=== PATIENT | female | born 1955 | race Caucasian/White ===

== ENCOUNTER → 2018-12-08 11:31 | Outpatient (CLI) | payer OTHER, SELFPAY ==
--- NOTE | 2018-12-08 11:37 | RAD_ITS ---
STUDY: X-RAY CHEST REASON FOR EXAM: Female, 63 years old. Cough for 2 months. TECHNIQUE: PA and lateral chest. COMPARISON: January 09, 2015. FINDINGS: The lungs are clear and expanded. There is no demonstrated pleural abnormality. Normal size heart. Normal mediastinum and josé luis. Normal visualized pulmonary arteries. Normal visualized aortic arch and descending thoracic aorta. Normal visualized thoracic spine. Normal visualized ribs, clavicles, and shoulders. There is no demonstrated abnormality of the visualized soft tissue structures of the upper abdomen. RAD/Chest PA and Lateral IMPRESSION: No acute cardiopulmonary disease. Electronically Signed: Shubham Mario MD at 2:44 EST , Service support ,
--- OUTSIDE RECORDS SUMMARY | 2019-02-09 22:43 | XMS RPT_ITS | Continuity of Care Document ---
:1955 Author Organization [facility] Address [address] [facility] [address] [place] [address] Phone Care Team Providers Name Role Phone Jenny James DO Unavailable Dr. Aroldo Wynne Unavailable Christopher Cote Unavailable Arlin Mann Unavailable Unavailable GLYNN Kay Unavailable Unavailable Unavailable Unavailable Problems Name Dates Details Amenorrhea (N91.2, 626.0) Status: Active Annual physical exam (Z00.00, V70.0) Status: Active BMI 40.0-44.9, adult (Z68.41, V85.41) Status: Active BMI 45.0-49.9, adult (Z68.42, V85.42) Status: Active Borderline abnormal thyroid function test (R94.6, 794.5) Status: Active Calcaneal spur (M77.30, 726.73) Status: Active Chest pain (R07.9, 786.50) Comments: MS bc reproducible and anxiety vs ACS(CAD), [facility] Duffy testED 10/02 for chest pain.Testing done .Off and on.middle and left side, non radaiting to neck, jaw or arms.Has SOB with CP.Luke on asse mbly line, thinks stressed out, celexa made her sleepy.[facility] at [facility]: 120[facility]125 [facility]hest pain starts on physical exertion.better with resting. Not have it everyday, if day is mellowed out doesnt ah ve it. 1-2 times /week, not getting worse.No reflux, no sour brash, no abdominal pain.Hold chest when has chest pain, pain is 4-5/10, still able to work , styruggling through. Status: Active Cough (R05, 786.2) Status: Active CRP elevated (R79.82, 790.95) Comments: chronic and we think oamamm up todate, pap and pelvic up to date -- needs scope-- has oa, no current infections Status: Active Diastolic dysfunction (I51.9, 429.9) Comments: Echo 05/09/16: EF 65%, stage 2 diastolic dysfunction. 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 Status: Active Heart murmur (R01.1, 785.2) Comments: new Status: Active Hypercholesterolemia (E78.00, 272.0) Status: Active Hypothyroidism (acquired) (E03.9, 244.9) Comments: follow bc pt stopped meds and doesnt want to take them if borderline Status: Active Localized, primary osteoarthritis of lower leg (M17.10, 715.16) Status: Active Mild pulmonary hypertension (I27.20, 416.8) Comments: RVSP : 32 on echo 05/09/16, EF 65%, stage 2 diastollic duysfunction, started on metoprol last visit, BP okPFT: WNLHas SOB when climbing upstairs, sleeping good, snores at night, no loss of conciosness, has chest pain, no lower extremities edema. Status: Active Noncompliance with medications (Z91.14, V15.81) Status: Active Nonsmoker (Z78.9, V49.89) Status: Active Obesity, unspecified (E66.9, 278.00) Status: Active Post-nasal drainage (R09.82, 473.9) Comments: try nasal spray and antihistamine Status: Active Stress reaction (F43.0, 308.9) Comments: stopped celexa because making her sleepy Status: Active Thrombophlebitis (I80.9, 451.9) Status: Active Thrush (B37.0, 112.0) Status: Active Medications Name Dates Details D3 ADULT, 1000UNIT (Oral Tablet Chewable) Active (1000 UNIT) FISH OIL (Oil) Active 500mg Metoprolol Tartrate 25 MG Oral Tablet 1/2 Tablet bid for 60 days Quantity: 60 {Tablet} Refills: 3 Ordered:13-Nov-2018 Virgilio James DO, DO, Kathleen Start : 13-Nov-2018 Active MULTIVITAMIN (Oral Liquid) for 0 days Refills: 0 Ordered:08-Dec-2018 Gravius, JasminActive Zithromax Z-Tyron 250 MG Oral Tablet tad Tablet qd for 0 days Quantity: 1 {Package} Refills: 0 Ordered:08-Dec-2018 Virgilio James DO, DO, Kathleen Start : 08-Dec-2018 Active Zithromax Z-Tyron 250 MG Oral Tablet tad Tablet qd for 0 days Quantity: 1 {Package} Refills: 0 Ordered:08-Dec-2018 Deborah Kay LPN Start : 08-Dec-2018 Active Cheratussin AC 100-10 MG/5ML Oral Solution 1-2 Teaspoon qhs prn for 0 days Quantity: 6 {Ounce} Refills: 0 Ordered:24-Jan-2017 Deborah Kay LPN Start : 18-Dec-2016 End : 24-Jan-2017 Inactive Clotrimazole 10 MG Mouth/Throat Rafy 1 (one) Rafy 5 x daily for 10 days Quantity: 50 {QS} Refills: 0 Ordered:18-Dec-2016 John THAKKARRaine E Start : 18-Dec-2016 End : 28-Dec-2016 Inactive CRESTOR, 5MG (Oral Tablet) 1 (one) Tablet daily for 90 days Refills: 3 Ordered:22-Dec-2012 Rahul Deborah MAKI Start : 17-Nov-2009 End : 22-Dec-2012 Inactive Naprosyn 500 MG Oral Tablet 1 (one) Tablet bid with food for 10 days then prn for 0 days Quantity: 60 {Tablet} Refills: 3 Ordered:24-Jan-2017 RahulDeborah LPN Start : 04-Aug-2015 End : 24-Jan-2017 Inactive Synthroid 50 MCG Oral Tablet 1 (one) Tablet qd for 0 days Quantity: 30 {Tablet} Refills: 3 Ordered:08-Dec-2018 Deborah Kay LPN Start : 09-Jun-2018 End : 08-Dec-2018 Inactive Dispense as Written CELEXA, 10MG (Oral Tablet) 1 (one) Tablet qhs for 0 days Quantity: 30 {Tablet} Refills: 3 Ordered:23-May-2016 Virgilio James DO, DO, Kathleen Start : 23-May-2016 End : 23-May-2016 Discontinued VISTARIL, 25MG (Oral Capsule) 1 Capsule q 6hrs/prn for 0 days Refills: 0 Ordered:04-May-2009 Chantelle Solis Start : 05-May-2008 End : 04-May-2009 Discontinued Allergies and Adverse Reactions Name Dates Details No Known Allergies (Allergy) Onset: 27-Mar-2017 Status: Active No Known Drug Allergies (Allergy) Status: Active Past Medical History Name Dates Details Abnormal TSH (R79.89, 790.6) Status: Inactive as of 08-Dec-2018 Ankle pain (M25.579, 719.47) Comments: 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 Status: Inactive as of 04-Aug-2015 BMI 40.0-44.9, adult (Z68.41, V85.41) Status: Inactive as of 21-Aug-2017 Breast cancer screening (Renamed from Breast screening) (Z12.39, V76.10) Status: Inactive as of 04-Aug-2015 Chest pain, atypical (R07.89, 786.59) Comments: i think etology mixture of MS and anxiety -- willloook at heart with echo for murmur and at least see if any motion abnormalities Status: Inactive as of 21-Aug-2017 Elevated blood-pressure reading without diagnosis of hypertension (R03.0, 796.2) Status: Resolved as of 29-Dec-2012 Fatigue (R53.83, 780.79) Status: Inactive as of 21-Aug-2017 Hoarseness (R49.0, 784.42) Status: Inactive as of 06-Jun-2018 Influenza vaccination declined (Renamed from Refused influenza vaccine) (Z28.21, V64.06) Status: Inactive as of 08-Dec-2018 Knee pain, bilateral (M25.561, 719.46) Comments: L>R had in left knee and help temitope do in right. doing alot at fair pt needs weight loss Status: Inactive as of 06-Jun-2018 PRURITUS OF SKIN, NOS (698.9) Comments: IMPROVEMENTSUSPECT DERMATIIS -- WELL WILL CHECK SOME ROUTINE LAB Status: Inactive as of 13-Apr-2009 Screening for deficiency anemia (Z13.0, V78.1) Status: Inactive as of 04-Aug-2015 Shoulder pain (M25.519, 719.41) Status: Inactive as of 22-Dec-2012 Therapeutic drug monitoring (Z51.81, V58.83) Status: Inactive as of 06-Jun-2018 Unspecified Diagnosis Status: Inactive as of 04-Aug-2015 Well Women Exam (V72.31)( Pap, Mammo, Routine Female and Dexa) (Renamed from Well Woman V72.31 (p,m,d)) (Z01.419, V72.31) Status: Inactive as of 04-Aug-2015 Procedures Date Value Details 14-Feb-2017 SCREENING MAMM (CAD), BILAT Result: Comments: See Note; NOTES: [facility] Imaging Services [address] [place] [address] Verdana 4d SCREENING MAMM (CAD), BILAT MR#: [id number] Acct: [id number] Name: TEVINDEYSIMorenita Rep #: [id number] : 1955 F 61 From: Ramón Hua MD PCP: Jenny James DO Status: REG CLI Study: SCREENING MAMM (CAD), BILAT Date of Exam: 02/14/17 Exam# [id number] Ordering Dr: Jenny Castrejon DO MAMMOGRAPHY - BILATERAL SCREENING REASON FOR EXAM: Female, 61 years old. Routine annual screening examination. PERTINENT HISTORY: Sister with breast cancer. TECHNIQUE: Digital bi lateral breast leighton (3D mammographic acquisition) in the CC and MLO projections. 2-D mediolateral oblique (MLO) and craniocaudad (CC) views of both breasts were obtained. CAD: Full Field Digital Mammogr aphy with Computer Added Detection was performed. COMPARISON: Comparison is made with prior study dated January 27, 2015 and June 09, 2009. FINDINGS: Breast Compositi on: There are scattered areas of fibroglandular density. There are no dominant masses or suspicious calcifications. Stable secretory calcifications in the upper outer quadrant of the right breast. No other significant abnormalities are identified. There has been no significant change since the prior study. HPBI/SCREENING MAMM (CAD), BILAT IMPR ESSION: Stable bilateral screening mammogram. Yearly follow-up mammogram recommended. (A) ASSESSMENT CATEGORY: BIRADS Category 2: Benign. A letter regarding these r esults will be sent to the patient by the facility within 30 days. Approximately 10% of breast cancers are not detected by mammography. A normal mammogram should not delay biopsy of a clinically suspic ious abnormality. [id number] Electronically Signed: Ramón Hua MD at 8:05 EDT Tel [phone], Service support [phone], CC: Jenny James DO Recreation Instructor: Signed 08-Jun-2016 Pulmonary Function Report Comp Result: Comments: See Note; NOTES: [facility] Pulmonary Services/Neurology [address] [place] [address] Pulmonary Function Test (Comp) MR#: [id number] Acct: [id number] Chau e: ARABELLA CARLSON Rep #: [id number] : 1955 60 From: Christopher Cote MD Referring Dr: Jenny James DO Status: REG CLI Ordering Dr: Jenny James DO Date: 06/07/16 Location: [facility] [place] Sex: F C DATE OF SERVICE: 06/07/2016 BRIEF HISTORY OF PRESENT ILLNESS: The patient is a 60-year-old female, currently under the care of Dr. James, who presents for a complete pulmonary func tion test secondary to a diagnosis of mild pulmonary hypertension. The respiratory therapist reported good patient effort and reproducible results. INTERPRETATION: Forced expiration spirometry demo nstrates no large airways obstructive ventilatory defect. There is no significant response to bronchodilators using strict ATS criteria. Spirograms are of good quality and plateau normally. The respi ratory flow volume loop appears normal. Lung volumes by body plethysmography show all lung volumes within normal limits. Diffusion capacity by single breath carbon monoxide is preserved at 80% of p redicted. Airway resistance is normal. No previous studies are available for comparison. IMPRESSION: These pulmonary function tests are within normal limits. MD David BARRIENTOS C: David James DO T: NTS JOB: [id number] 06/08/16 1649 <Electronically signed by Christopher Cote MD> Date Christopher Cote MD CC: Christopher Cote MD ; Jenny James DO Date Dictated: 06/08/16740 Date Transcribed: 06/08/16740 Recreation Instructor: Signed 09-May-2016 Echocardiogram Complete Result: Comments: See Note; NOTES: [facility] Cardiovascular Services [address] [place] [address] Echo Complete 05/09/16 1401 MR#: [id number] Acct: [id number] Name: ARABELLA RIBEIRO Rep #: [id number] : 1955 60 From: Eriberto Avila MD Attending Dr: Jenny James DO Status: REG CLI Ordering Dr: Jenny James DO Date: 05/09/16 Location: [facility] Sex: F C A dmitted: Reason For Study: murmur Procedure This was a 2D Doppler, Color Flow transthoracic echocardiogram. The study was technically difficult. Due to body habitus. Exam performed in [facility] ent. Left Ventricle Normal size and thickness. The estimated ejection fraction is 65 %. Stage 2 diastolic dysfunction. No regional wall motion abnormalities noted. Right Ventricle Normal size an d thickness. Normal systolic function. Atria The left atrium is moderately enlarged. Normal right atrium. Normal atrial septum. Mitral Valve The mitral valve is structurally normal. No prolapse or stenosis seen. Tricuspid Valve Normal tricuspid valve. Mild (1+) tricuspid valve insufficiency. Right ventricular systolic pressure estimated to be 32 mmHg. Aortic Valve Normal aortic valve. Tri sinus/trileaflet aortic valve. Pulmonic Valve The pulmonic valve is not well visualized. Great Vessels Normal aortic root. Normal arch. Normal inferior vena cava. Inferior vena cava collapse with sniff. Pericardium/Pleural No pericardial effusion. MMode/2D Measurements AND Calculations LVIDd: 4.5 cm IVSd: 1.2 cm LVOT diam: 2.0 cm LVIDs: 2.4 cm LVPWd: 0.85 cm LVOT area: 3.0 cm2 RVDd: 2.8 cm FS: 45.9 % Ao root diam: 3.0 cm LAV(MOD-bp): 75.0 ml LA A4 area: 23.5 cm2 LA dimension: 4.0 cm LAV(MOD-bp) Indexe d: 36.4 ml/m2 LAV(MOD-sp2): 66.3 ml LAV(MOD-sp4): 79.5 ml Doppler Measurements AND Calculations MV E max yogi: 94.3 cm/sec Lat Peak E' Yogi: 11.9 cm/sec Med Peak E' Yogi: 11.6 cm/sec MV A max yogi: 65.2 cm/sec E/E' lat: 7.9 E/E' med: 8.1 MV E/A: 1.4 Ao V2 max: 191.6 cm/sec LV V1 max: 129.7 cm/sec SV(LVOT): 89.8 m l Ao max P.7 mmHg LV V1 max P.7 mmHg Ao V2 mean: 128.6 cm/sec LV V1 mean P.7 mmHg Ao mean P.3 mmHg LV V1 mean: 92.2 cm/sec Ao V2 VTI: 42.5 cm LV V1 VTI: 30.0 cm LENARD(I,D): 2.1 cm2 LENARD(V,D): 2.0 cm2 PA V2 max: 115.0 cm/sec TR max yogi: 257.4 cm/sec TR max P.6 mmHg Interpretation Summary T he estimated ejection fraction is 65 %. Stage 2 diastolic dysfunction. The left atrium is moderately enlarged. Right ventricular systolic pressure estimated to be 32 mmHg. There is no comparison mary dy available. Ordering Physician: Jenny James Performed By: Wendi Chacon RDCS, RVT El ectronically signed by: Eriberto Avila MD on 05/09/2016 03:01 PM 05/09/16 1501 Date Eriberto Avila MD CC: Jenny James DO Date Dictated : 05/09/16 1401 Date Transcribed: 05/09/16 1501 Recreation Instructor: Signed 18-Apr-2016 ELECTROCARDIOGRAM, COMPLETE ([id number]) Comments: nsr no acute chg Result: [MEASUREMENTS ANALYSIS] Date of Test: 04/18/2016 15:07:50; Heart Rate: 71; CT Interval: 170; QRS: 98; QT Interval: 386; Corrected QT Interval (QTc): 405; P Wave Hardy: 52; QRS Wave Hardy: 14; T Wave Hardy: 20; Blood Pressure: 138/70 [ECG DIAGNOSTIC STATEMENTS] Date of Test: 04/18/2016 15:07:50; Summary: Sinus Rhythm WITHIN NORMAL LIMITS 27-Jan-2015 Bilat Scrn Digital AND CAD Result: Comments: See Note; NOTES: [facility] Imaging Services [address] [place] [address] Breast Imaging Report MR#: [id number] Acct: [id number] Name: ARABELLA CARLSON Rep #: [id number] : 1955 F 59 From: Ramón Hua MD PCP: Jenny James DO Status: REG CLI Study: Bilat Scrn Digital AND CAD Date of Exam: 01/27/15 Exam# [id number] Ordering Dr: Olga Lopez MAMMOGRAPHY - BILATERAL SCREENING REASON FOR EXAM: Female, 59 years old. Routine annual screening examination. PERTINENT HISTORY: Sister with breast cancer. TECHNIQUE: Digital examination. Mediolateral oblique (MLO) and craniocaudad (CC) views of both breasts were obtained. CAD: CAD was performed on this study. COMPARISON: Comparison is made with prior examination dated June 09 9. FINDINGS: Breast Composition: There are scattered areas of fibroglandular density. There are no dominant masses or suspicious calcifications. Linear secretor y calcifications are seen in the upper outer quadrant of the right breast. No other significant abnormalities are identified. IMPRESSION: Stable bilateral scre ening mammogram. Yearly follow-up recommended. (A) ASSESSMENT CATEGORY: BIRADS Category 2: Benign. A letter regarding these results will be sent to the patient b y the facility within 30 days. Approximately 10% of breast cancers are not detected by mammography. A normal mammogram should not delay biopsy of a clinically suspicious abnormality. Electronicall y Signed: Ramón Hua MD at 16:02 EDT Tel [phone], Service support [phone], CC: Raine Lopez; Jenny James DO Recreation Instructor: Signed 13-Jan-2015 Emergency Department Summary Result: Comments: See Note; NOTES: [facility] Medical Records Department [address] [place] [address] Emergency Department Summary MR#: [id number] Acct: [id number] Name: ARABELLA ELLSWORTH Rep #: [id number] : 1955 59 From: Miguelito Castaneda DO PCP: Jenny James DO Status: DEP ER DATE OF SERVICE: 01/09/2015 CHIEF COMPLAINT: Chest pain. HISTORY OF CHIEF COMPLAI NT: This 59-year-old female seen at the urgent care today for chest discomfort that she has had over the last 2 days, describes it as retrosternal, worse with movements, especially lifting her right arm over her head or bending over. Initially 2 days ago, had a little bit of chest pressure there, she thought it was maybe indigestion. She denies any shortness of breath, denies any nausea or vomi ting, no radiation of the pain. It does not seem to be exertional. PAST MEDICAL HISTORY: None. PAST SURGICAL HISTORY: Includes carpal tunnel surgery. PRIMARY CARE PHYSICIAN: Jenny Jacob, D.O. ALLERGIES: The patient has no known drug allergies. SOCIAL HISTORY: The patient does not smoke. She drinks alcohol occasionally. PHYSICAL EXAMINATION: VITAL SIGNS: On presentation, blood p ressure 167/76, temperature 98, heart rate 66, respiratory rate is 20, and pulse oximetry 97% on room air. GENERAL: She is awake, alert, in no acute distress. HEENT: She is normocephalic and atrauma tic. Pupils equal, reactive to light. TMs are clear. NECK: Supple. Mucous membranes are moist. CARDIOVASCULAR: Heart is regular. Pulses +2/4, equal bilaterally in the upper and lower extremities. LUNGS: Clear. No rales or wheezes. ____. No crepitus. No subcutaneous emphysema. Exam of the chest does reveal tenderness to palpation over the sternum that reproduces her pain. ABDOMEN: Soft and n ot tender. EXTREMITIES: Intact x4. Muscle strength +5/5. Negative Homans sign. Exam otherwise unremarkable. EMERGENCY DEPARTMENT COURSE: The urgent care note stated that the patient had reproducib le pain, but thought she got to be ruled out for acute FL. The patient did have an EKG on arrival here showed a sinus rhythm with a rate of 69 beats per minute with no acute ST-segment changes. CBC with differential was normal. Chemistries are normal. Troponin was less than 0.02. Chest x-ray showed nothing acute. I did do a D-dimer, which was elevated at 3.99, therefore CT of the chest was obt ained, which was read as negative for PE or dissection. At this point, the patient will be discharged to home. She really has no risk factors for coronary artery disease. I do not feel her chest pain is cardiac in nature. I feel this is all musculoskeletal. The patient will be instructed to take Motrin or Tylenol for discomfort. She does not want anything more for pain. Otherwise, she is instru cted to follow up with Dr. James within next 3-4 days. Return if worsening pain, increasing shortness of breath or her condition worsens in any way. DIAGNOSIS: Chest pain, suspect musculoskeletal chest wall strain. DISPOSITION: Discharged in stable condition. Miguelito Castaneda DO T: NTS JOB: [id number] 01/13/15 0991 <Electronically signed by Miguelito Castaneda DO> Date ___ Miguelito Castaneda DO CC: Jennylulu James DO Date Dictated: 01/09/15 1203 Date Transcribed: 01/09/15 1203 Recreation Instructor: Signed 11-Jan-2015 12 Lead Electrocardiogram Result: Comments: See Note; NOTES: [facility] Cardiovascular Services [address] [place] [address] 12 Lead EKG 01/09/15 1019 MR#: [id number] Acct: [id number] Name: TEVINDEYSI ARABELLA Raine Rep #: [id number] : 1955 59 From: Albert German MD Attending Dr: Status: DEP ER Ordering Dr: Miguelito Castaneda DO Date: 01/09/15 Location: ED Sex: F C Admitted: Test Reason : CP Bloo d Pressure : / mmHG Vent. Rate : 069 BPM Atrial Rate : 069 BPM P-R Int : 156 ms QRS Dur : 092 ms QT Int : 390 ms P-R-T Axes : -07 022 029 degrees QTc Int : 417 ms Normal sinus rhythm Nor mal ECG Confirmed by ERIKA BREWSTER, ALBERT ([id number]), editor magazine FABRICE SANTANA ([id number]) on 01/11/2015 10:31:30 AM Referred By: STELUANN Confirmed By:ALBERT GERMAN MD 01/11/15 1031 Date Albert German MD CC: Jenny James DO Date Dictated: 01/09/15 1019 Date Transcribed: 01/09/15 1019 Recreation Instructor: Signed 09-Jan-2015 Discharge Instruction Result: Comments: See Note; NOTES: [facility] Medical Records Department [address] [place] [address] Discharge Instruction 01/09/15 1200 MR#: [id number] Acct: [id number] Name: ARABELLA CARLSON Rep #: [id number] : 1955 59 From: Miguelito Castaneda DO PCP: Jenny James DO Status: REG ER ED Disposition - Plan for ED Patient: Chief Complaint: Chest Pain Instructi ons: ED Chest Wall Strain Referrals: Jenny James DO [Primary Care Provider] - 3-5 Days if not improving What to do if you have Problems For any increased pain, shortness of breath, bleeding , nausea or vomiting, chest pain, or any unexpected problems, contact your doctor. Call [facility] ( [phone]) or report to the closest Emergency Room. Call 911 if necessary. 01/09/15 120 0 <Electronically signed by Miguelito Castaneda DO> Date Miguelito Castaneda DO Cosigner Signature (If Indicated): Date CC: Jenny James DO 09-Jan-2015 CTA Chest W/WO Contrast Result: Comments: See Note; NOTES: [facility] Imaging Services [address] [place] [address] CAT Scan Report MR#: [id number] Acct: [id number] Name: ARABELLA CARLSON Rep #: [id number] : 1955 F 59 From: Lucien Patel MD PCP: Jenny James DO Status: REG ER Study: CTA Chest W/WO Contrast Date of Exam: 01/09/15 Exam# [id number] Ordering Dr: Miguelito Castaneda DO MARY DY: CTA CHEST REASON FOR EXAM: Female, 59 years old. Midsternal chest pain RADIATION DOSAGE (If Supplied By Facility): CTDIvol = ( 14.61 ) mGy, DLP = ( 677.18 ) mGycm TECHNIQUE: The examination w as performed with the intravenous administration of 100mL ml of Isovue 370 contrast material. Post-processing of the angiographic images was performed, with multiplanar reformation and 3D reconstruct ion. COMPARISON: Chest x-ray. FINDINGS: Normal enhancement of the main pulmonary artery and right and left pulmonary arteries. There is limited enhancement of the bilateral peripheral pulmonary arteries. There is no demonstrated pulmonary embolism. There is atherosclerotic calcification of the aortic arch1. There is no demonstrated aortic dissection. Normal heart and pericardium. Normal mediastinum. There are calcified right hilar lymph nodes. Normal visualized trachea and bronchi. The lungs are well expanded. There are mild fibrotic densitie s in the lungs. Calcified right perihilar nodule. Normal pleura. Normal chest wall structures. There are degenerative changes of thoracic spine and shoulders. Normal visualized upper abdomen. IMPRESSION: No embolism seen. Suboptimal enhancement of the pulmonary arteries. Mild fibrosis or scarring. Electronically Signed: Lucien Patel MD 2 at 11:46 EST , Service support [phone], CC: Jenny James DO; Miguelito Castaneda DO Recreation Instructor: Signed 09-Jan-2015 Chest 1 View (Portable) Result: Comments: See Note; NOTES: [facility] Imaging Services [address] [place] [address] Radiology Report MR#: [id number] Acct: [id number] Name: ARABELLA CARLSON Rep #: [id number] : 1955 F 59 From: Ramón Hua MD PCP: Jenny James DO Status: DEP ER Study: Chest 1 View (Portable) Date of Exam: 01/09/15 Exam# [id number] Ordering Dr: Miguelito Castaneda DO STUDY: X-RAY CHEST REASON FOR EXAM: Female, 59 years old. 2 day history of chest pain. TECHNIQUE: Single AP portable view of the chest. COMPARISON: None. F INDINGS: EKG electrodes are seen. Minimal increased linear markings at the right lung base suggestive of scarring or linear atelectasis. There is no demonstrated pleural abnormality. There is bor derline cardiomegaly. Normal mediastinum and josé luis. Normal visualized pulmonary arteries. There is atherosclerotic tortuosity of the aortic arch and descending thoracic aorta. There are diffuse degen erative changes of the visualized thoracic spine. Normal visualized ribs, clavicles, and shoulders. There is no demonstrated abnormality of the visualized soft tissue structures of the upper abdomen . IMPRESSION: Mild increased linear markings at the right lung base suggestive of a linear atelectasis and/or scarring. Electronically Signed: Ramón song MD at 8:38 EST Tel [phone], Service support [phone], CC: Jenny James DO; Miguelito Castaneda DO Recreation Instructor: Signed 06-Jan-2014 Ankle min 3 Views Result: Comments: See Note; NOTES: [facility] Imaging Services [address] [place] [address] Radiology Report MR#: [id number] Acct: [id number] Name: ARABELLA CARLSON Rep #: [id number] : 1955 F [id number] From: Juan J Mclaughlin MD PCP: Jenny James DO Status: REG CLI Study: Ankle min 3 Views Date of Exam: 01/06/14 Exam# [id number] Ordering Dr: Jenny James DO MARY DY: X-RAY - RIGHT ANKLE REASON FOR EXAM: Female, 58 years old. Medial ankle pain, no known injury TECHNIQUE: 3 views of the ankle. COMPARISON: None. FINDING S: Normal visualized distal tibia and fibula. Normal medial and lateral malleoli. Normal tibiotalar articulation and ankle mortise. There is a spur of the inferior calcaneus. There is joint space narrowing with marginal osteophyte formation and subcortical cyst of the tarsal- metatarsal articulations. IMPRESSION: 1. No destructive or erosive bony process. 2. Osteoarthritis of the midfoot 3. Calcaneal spur. Electronically Signed: Juan J Mclaughlin M.D. at 16:40 EST , Service support [phone], CC: Enid James DO Recreation Instructor: Signed 06-Jan-2014 Knee 4 or More Views Result: Comments: See Note; NOTES: [facility] Imaging Services [address] [id number] Radiology Report MR#: [id number] Acct: [id number] Name: ARABELLA CARLSON Rep #: [id number] : 1955 F 58 From: Juan J Mclaughlin MD PCP: Jenny James DO Status: REG CLI Study: Knee 4 or More Views Date of Exam: 01/06/14 Exam# [id number] Ordering Dr: Jenny James DO STUDY: X-RAY - RIGHT KNEE REASON FOR EXAM: Female, 58 years old. Bilateral knee pain, left more than right TECHNIQUE: 4 views of the knee. COMPARISON: None. FINDINGS: Normal visualized distal femur. Normal visualized proximal tibia and fibula. Normal proximal tibiofibular articulation. There is mild narrowing of the medial compartment with marginal ost eophyte formation. Normal lateral femorotibial compartment. There is mild degenerative arthrosis of the patellofemoral articulation. There is no demonstrated joint effusion. The soft tissue structu res are unremarkable. 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 Electronically Signed: Juan J Mclaughlin M.D. a t 16:41 EST , Service support [phone], CC: Jenny James DO Recreation Instructor: Signed 06-Jan-2014 Knee 4 or More Views Result: Comments: See Note; NOTES: [facility] Imaging Services [address] [place] [address] Radiology Report MR#: [id number] Acct: [id number] Name: ARABELLA CARLSON Rep #: : 1955 F [id number] From: Juan J Mclaughlin MD PCP: Jenny Jmaes DO Status: REG CLI Study: Knee 4 or More Views Date of Exam: 01/06/14 Exam# [id number] Ordering Dr: Jenny James DO STUDY: X-RAY - LEFT KNEE REASON FOR EXAM: Female, 58 years old. Bilateral knee pain, left worse than right TECHNIQUE: 4 views of the knee. COMPARISON: Right knee x-rays performed at the same time . FINDINGS: Normal visualized distal femur. Normal visualized proximal tibia and fibula. Normal proximal tibiofibular articulation. There is mild narrowing of the medial compartment with marginal osteophyte formation. There is lateral subluxation of the tibial plateau in relation to the femoral condyles. Normal lateral femorotibial compartment. There is mo derate to severe narrowing of the lateral patellofemoral facet with lateral patellar tilt. There is no demonstrated joint effusion. The soft tissue structures are unremarkable. IMPRESSION: 1. Degenerative arthrosis of the patellofemoral more than medial compartments. 2. Mild lateral subluxation of the tibial plateau in relation to the femoral condyles, lik micah degenerative. Electronically Signed: Juan J Mclaughlin M.D. at 16:43 EST , Service support [phone], CC: Jenny James DO Recreation Instructor: Signed Family History Unknown Family Member Name Dates Details Father Comments: Lung CA - smoker Status: Active Sister 1 Comments: Lung CA Status: Active Social History Name Dates Details Alcohol Use Comments: Occasional alcohol use Status: Active Caffeine Use Comments: 1 QD Status: Active No Drug Use Status: Active Non Smoker/No Tobacco Use Status: Active Tobacco Use: Never smoker. Status: Active Smoking Status Name Dates Details Never smoker Vital Signs Date Test Result Details :57 Temperature 97.3 f Comments: Method: Temporal Pulse 70 /min Comments: Pattern: Regular Respiration Rate 18 /min Comments: Pattern: Unlabored O2 SAT 97 % Comments: Room air BP Systolic 124 mm[Hg] Comments: Patient Position: Sitting; Cuff Location: Left Arm; Cuff Size: Large BP Diastolic 98 mm[Hg] Comments: Patient Position: Sitting; Cuff Location: Left Arm; Cuff Size: Large Weight 260.125 lb Height 61 in Body Mass Index Calculated 49.15 kg/m2 Body Surface Area Calculated 2.11 m2 :55 Pulse 65 /min Comments: Pattern: Regular Respiration Rate 18 /min Comments: Pattern: Unlabored O2 SAT 97 % Comments: Room air BP Systolic 142 mm[Hg] Comments: Patient Position: Sitting; Cuff Location: Left Arm; Cuff Size: Large BP Diastolic 88 mm[Hg] Comments: Patient Position: Sitting; Cuff Location: Left Arm; Cuff Size: Large Weight 242.125 lb Height 61 in Body Mass Index Calculated 45.75 kg/m2 Body Surface Area Calculated 2.05 m2 :11 Temperature 97.5 f Pulse 77 /min Comments: Pattern: Regular Respiration Rate 18 /min Comments: Pattern: Unlabored O2 SAT 97 % Comments: Room air BP Systolic 148 mm[Hg] Comments: Patient Position: Sitting; Cuff Location: Left Arm; Cuff Size: Standard BP Diastolic 78 mm[Hg] Comments: Patient Position: Sitting; Cuff Location: Left Arm; Cuff Size: Standard Weight 233.5 lb Height 61 in Body Mass Index Calculated 44.12 kg/m2 Body Surface Area Calculated 2.02 m2 :30 Pulse 74 /min Comments: Pattern: Regular Respiration Rate 18 /min Comments: Pattern: Unlabored O2 SAT 96 % Comments: Room air BP Systolic 128 mm[Hg] Comments: Patient Position: Sitting; Cuff Location: Left Arm; Cuff Size: Large BP Diastolic 70 mm[Hg] Comments: Patient Position: Sitting; Cuff Location: Left Arm; Cuff Size: Large Weight 238.375 lb Height 61 in Body Mass Index Calculated 45.04 kg/m2 Body Surface Area Calculated 2.04 m2 :20 Pulse 64 /min Comments: Pattern: Regular Respiration Rate 16 /min Comments: Pattern: Unlabored O2 SAT 97 % Comments: Room air BP Systolic 130 mm[Hg] Comments: Patient Position: Sitting; Cuff Location: Left Arm; Cuff Size: Standard BP Diastolic 70 mm[Hg] Comments: Patient Position: Sitting; Cuff Location: Left Arm; Cuff Size: Standard Weight 232 lb Height 61 in Body Mass Index Calculated 43.84 kg/m2 Body Surface Area Calculated 2.01 m2 :44 Pulse 77 /min Comments: Pattern: Regular Respiration Rate 18 /min Comments: Pattern: Unlabored O2 SAT 94 % Comments: Room air BP Systolic 132 mm[Hg] Comments: Patient Position: Sitting; Cuff Location: Right Arm; Cuff Size: Large BP Diastolic 84 mm[Hg] Comments: Patient Position: Sitting; Cuff Location: Right Arm; Cuff Size: Large Weight 232 lb Height 61 in Body Mass Index Calculated 43.84 kg/m2 Body Surface Area Calculated 2.01 m2 :28 Temperature 98.4 f Comments: Method: Tympanic Pulse 71 /min Comments: Pattern: Regular Respiration Rate 18 /min Comments: Pattern: Unlabored O2 SAT 96 % Comments: Room air BP Systolic 116 mm[Hg] Comments: Patient Position: Sitting; Cuff Location: Left Arm; Cuff Size: Standard BP Diastolic 62 mm[Hg] Comments: Patient Position: Sitting; Cuff Location: Left Arm; Cuff Size: Standard Weight 232.25 lb Height 61 in Body Mass Index Calculated 43.88 kg/m2 Body Surface Area Calculated 2.01 m2 :42 Pulse 76 /min Comments: Pattern: Regular Respiration Rate 18 /min Comments: Pattern: Unlabored O2 SAT 94 % Comments: Room air BP Systolic 118 mm[Hg] Comments: Patient Position: Sitting; Cuff Location: Left Arm; Cuff Size: Large BP Diastolic 78 mm[Hg] Comments: Patient Position: Sitting; Cuff Location: Left Arm; Cuff Size: Large Weight 232.25 lb Height 61 in Body Mass Index Calculated 43.88 kg/m2 Body Surface Area Calculated 2.01 m2 :29 Temperature 98.6 f Comments: Method: Temporal Pulse 62 /min Comments: Pattern: Regular Respiration Rate 16 /min Comments: Pattern: Unlabored O2 SAT 97 % Comments: Room air BP Systolic 138 mm[Hg] Comments: Patient Position: Sitting; Cuff Location: Left Arm; Cuff Size: Standard BP Diastolic 80 mm[Hg] Comments: Patient Position: Sitting; Cuff Location: Left Arm; Cuff Size: Standard Weight 234 lb Height 61 in Body Mass Index Calculated 44.21 kg/m2 Body Surface Area Calculated 2.02 m2 :45 Pulse 74 /min Comments: Pattern: Regular Respiration Rate 20 /min Comments: Pattern: Unlabored O2 SAT 94 % Comments: Room air BP Systolic 122 mm[Hg] Comments: Patient Position: Sitting; Cuff Location: Left Arm; Cuff Size: Standard BP Diastolic 68 mm[Hg] Comments: Patient Position: Sitting; Cuff Location: Left Arm; Cuff Size: Standard Weight 238.25 lb Height 61 in Body Mass Index Calculated 45.02 kg/m2 Body Surface Area Calculated 2.04 m2 :49 Temperature 96.7 f Pulse 80 /min Comments: Pattern: Regular Respiration Rate 16 /min Comments: Pattern: Unlabored O2 SAT 96 % Comments: Room air BP Systolic 138 mm[Hg] Comments: Patient Position: Sitting; Cuff Location: Left Arm; Cuff Size: Standard BP Diastolic 70 mm[Hg] Comments: Patient Position: Sitting; Cuff Location: Left Arm; Cuff Size: Standard Weight 239 lb Height 61 in Body Mass Index Calculated 45.16 kg/m2 Body Surface Area Calculated 2.04 m2 :41 Temperature 97.8 f Comments: Method: Temporal Pulse 80 /min Comments: Pattern: Regular Respiration Rate 18 /min Comments: Pattern: Unlabored O2 SAT 98 % Comments: Room air BP Systolic 138 mm[Hg] Comments: Patient Position: Sitting; Cuff Location: Left Arm; Cuff Size: Large BP Diastolic 74 mm[Hg] Comments: Patient Position: Sitting; Cuff Location: Left Arm; Cuff Size: Large Weight 234 lb Height 61 in Body Mass Index Calculated 44.21 kg/m2 Body Surface Area Calculated 2.02 m2 :52 Temperature 98.3 f Comments: Method: Temporal Pulse 87 /min Comments: Pattern: Regular Respiration Rate 16 /min Comments: Pattern: Unlabored O2 SAT 97 % Comments: Room air BP Systolic 144 mm[Hg] Comments: Patient Position: Sitting; Cuff Location: Left Arm; Cuff Size: Standard BP Diastolic 72 mm[Hg] Comments: Patient Position: Sitting; Cuff Location: Left Arm; Cuff Size: Standard Weight 234.125 lb Height 61 in Body Mass Index Calculated 44.24 kg/m2 Body Surface Area Calculated 2.02 m2 :19 Pulse 60 /min Comments: Pattern: Regular Respiration Rate 18 /min Comments: Pattern: Unlabored O2 SAT 97 % Comments: Room air BP Systolic 158 mm[Hg] Comments: Patient Position: Sitting; Cuff Location: Left Arm; Cuff Size: Standard BP Diastolic 82 mm[Hg] Comments: Patient Position: Sitting; Cuff Location: Left Arm; Cuff Size: Standard Weight 238.125 lb Height 61 in Body Mass Index Calculated 44.99 kg/m2 Body Surface Area Calculated 2.03 m2 :00 Pulse 74 /min Comments: Pattern: Regular Respiration Rate 18 /min Comments: Pattern: Unlabored O2 SAT 97 % Comments: Room air BP Systolic 156 mm[Hg] Comments: Patient Position: Sitting; Cuff Location: Left Arm; Cuff Size: Large BP Diastolic 82 mm[Hg] Comments: Patient Position: Sitting; Cuff Location: Left Arm; Cuff Size: Large Weight 238.125 lb Height 61 in Body Mass Index Calculated 44.99 kg/m2 Body Surface Area Calculated 2.03 m2 :44 Temperature 97.9 f Comments: Method: Oral Pulse 76 /min Comments: Pattern: Regular Respiration Rate 17 /min O2 SAT 98 % Comments: Room air BP Systolic 132 mm[Hg] Comments: Patient Position: Sitting; Cuff Location: Left Arm; Cuff Size: Standard BP Diastolic 80 mm[Hg] Comments: Patient Position: Sitting; Cuff Location: Left Arm; Cuff Size: Standard Weight 225.125 lb :34 Pulse 86 /min Comments: Pattern: Regular Respiration Rate 20 /min Comments: Pattern: Unlabored O2 SAT 97 % Comments: Room air BP Systolic 124 mm[Hg] Comments: Patient Position: Sitting; Cuff Location: Left Arm; Cuff Size: Large BP Diastolic 80 mm[Hg] Comments: Patient Position: Sitting; Cuff Location: Left Arm; Cuff Size: Large Weight 220.5 lb Height 61 in Body Mass Index Calculated 41.66 kg/m2 Body Surface Area Calculated 1.97 m2 :55 Pulse 72 /min Comments: Pattern: Regular Respiration Rate 18 /min Comments: Pattern: Unlabored O2 SAT 97 % Comments: Room air BP Systolic 124 mm[Hg] Comments: Patient Position: Sitting; Cuff Location: Left Arm; Cuff Size: Standard BP Diastolic 78 mm[Hg] Comments: Patient Position: Sitting; Cuff Location: Left Arm; Cuff Size: Standard Weight 219.5 lb Height 61 in Body Mass Index Calculated 41.47 kg/m2 Body Surface Area Calculated 1.97 m2 :19 Temperature 98.4 f Comments: Method: Oral Pulse 78 /min Comments: Pattern: Regular Respiration Rate 20 /min Comments: Pattern: Unlabored O2 SAT 97 % Comments: Room air BP Systolic 138 mm[Hg] Comments: Patient Position: Sitting; Cuff Location: Left Arm; Cuff Size: Large BP Diastolic 80 mm[Hg] Comments: Patient Position: Sitting; Cuff Location: Left Arm; Cuff Size: Large Weight 227.125 lb Height 61 in Body Mass Index Calculated 42.91 kg/m2 Body Surface Area Calculated 1.99 m2 :35 Pulse 79 /min Comments: Pattern: Regular Respiration Rate 20 /min Comments: Pattern: Unlabored O2 SAT 96 % Comments: Room air BP Systolic 140 mm[Hg] Comments: Patient Position: Sitting; Cuff Location: Left Arm; Cuff Size: Large BP Diastolic 82 mm[Hg] Comments: Patient Position: Sitting; Cuff Location: Left Arm; Cuff Size: Large Weight 227.125 lb Height 61 in Body Mass Index Calculated 42.91 kg/m2 Body Surface Area Calculated 1.99 m2 :08 Temperature 98 f Comments: Method: Oral Pulse 84 /min Comments: Pattern: Regular Respiration Rate 20 /min Comments: Pattern: Unlabored BP Systolic 130 mm[Hg] Comments: Patient Position: Sitting; Cuff Location: Left Arm; Cuff Size: Large BP Diastolic 82 mm[Hg] Comments: Patient Position: Sitting; Cuff Location: Left Arm; Cuff Size: Large Weight 229.5 lb Height 61 in Body Mass Index Calculated 43.36 kg/m2 Body Surface Area Calculated 2 m2 :52 Temperature 97.5 f Comments: Method: Oral Pulse 80 /min Comments: Pattern: Regular Respiration Rate 20 /min Comments: Pattern: Unlabored BP Systolic 124 mm[Hg] Comments: Patient Position: Sitting; Cuff Location: Left Arm; Cuff Size: Large BP Diastolic 82 mm[Hg] Comments: Patient Position: Sitting; Cuff Location: Left Arm; Cuff Size: Large Weight 235.125 lb Height 61 in Body Mass Index Calculated 44.43 kg/m2 Body Surface Area Calculated 2.02 m2 :54 Pulse 64 /min Comments: Pattern: Regular Respiration Rate 20 /min Comments: Pattern: Unlabored BP Systolic 128 mm[Hg] Comments: Patient Position: Sitting; Cuff Location: Right Arm; Cuff Size: Standard BP Diastolic 82 mm[Hg] Comments: Patient Position: Sitting; Cuff Location: Right Arm; Cuff Size: Standard Weight 235.125 lb Height 61 in Body Mass Index Calculated 44.43 kg/m2 Body Surface Area Calculated 2.02 m2 :18 Temperature 97 f Comments: Method: Oral Pulse 70 /min Comments: Pattern: Regular Respiration Rate 16 /min Comments: Pattern: Unlabored BP Systolic 120 mm[Hg] Comments: Patient Position: Sitting; Cuff Location: Left Arm; Cuff Size: Standard BP Diastolic 72 mm[Hg] Comments: Patient Position: Sitting; Cuff Location: Left Arm; Cuff Size: Standard Weight 231.5 lb Height 61 in Body Mass Index Calculated 43.74 kg/m2 Body Surface Area Calculated 2.01 m2 :11 Pulse 60 /min Comments: Pattern: Regular Respiration Rate 16 /min Comments: Pattern: Unlabored BP Systolic 138 mm[Hg] Comments: Patient Position: Supine; Cuff Location: Left Arm; Cuff Size: Standard BP Diastolic 80 mm[Hg] Comments: Patient Position: Supine; Cuff Location: Left Arm; Cuff Size: Standard Weight 230.4375 lb Height 62 in Body Mass Index Calculated 42.15 kg/m2 Body Surface Area Calculated 2.03 m2 Head Circumference 0.00 cm :37 Temperature 97.7 f Comments: Method: Oral Pulse 68 /min Comments: Pattern: Regular Respiration Rate 18 /min Comments: Pattern: Unlabored BP Systolic 124 mm[Hg] Comments: Patient Position: Sitting; Cuff Location: Left Arm; Cuff Size: Large BP Diastolic 82 mm[Hg] Comments: Patient Position: Sitting; Cuff Location: Left Arm; Cuff Size: Large Weight 237.0625 lb Height 0 in Head Circumference 0.00 cm :45 Temperature 97.8 f Comments: Method: Oral Pulse 58 /min Comments: Pattern: Regular Respiration Rate 16 /min Comments: Pattern: Unlabored BP Systolic 120 mm[Hg] Comments: Patient Position: Sitting; Cuff Location: Left Arm; Cuff Size: Large BP Diastolic 76 mm[Hg] Comments: Patient Position: Sitting; Cuff Location: Left Arm; Cuff Size: Large Weight 236.4375 lb Height 0 in Head Circumference 0.00 cm :19 Pulse 80 /min Comments: Pattern: Regular Respiration Rate 20 /min Comments: Pattern: Unlabored BP Systolic 136 mm[Hg] Comments: Patient Position: Sitting; Cuff Location: Left Arm; Cuff Size: Large BP Diastolic 70 mm[Hg] Comments: Patient Position: Sitting; Cuff Location: Left Arm; Cuff Size: Large Weight 208.375 lb Height 0 in Head Circumference 0.00 cm :58 Temperature 97.6 f Comments: Method: Oral Pulse 76 /min Comments: Pattern: Regular Respiration Rate 16 /min Comments: Pattern: Undefined BP Systolic 132 mm[Hg] Comments: Patient Position: Sitting; Cuff Location: Left Arm; Cuff Size: Large BP Diastolic 70 mm[Hg] Comments: Patient Position: Sitting; Cuff Location: Left Arm; Cuff Size: Large Weight 208.375 lb Height 0 in Head Circumference 0.00 cm Results Date Description Value Details :42 TSH (85637) Comments: PATIENT NOT FASTINGPERFORMED BY: [employer] [id number] [facility] [id number] TSH 3.160 {uIU/mL} (Normal) Range: 0.450-4.500 :42 T4, FREE (THYROXINE) (64429) Comments: PATIENT NOT FASTINGPERFORMED BY: [facility] HospitalEqoxov8577 [facility] [id number] T4,Free(Direct) 0.91 ng/dL (Normal) Range: 0.82-1.77 :42 T3, FREE (TRIDOTHYRONINE) (24264) Comments: PATIENT NOT FASTINGPERFORMED BY: [facility] HospitalXpnrwe1019 [facility] [id number] Triiodothyronine (T3), Free 2.6 pg/mL (Normal) Range: 2.0-4.4 :18 METABOLIC PANEL, COMPREHENSIVE Comments: PATIENT WAS FASTINGPERFORMED BY: KAT[employer]70 [facility] [id number] (20432) ALT (SGPT) 16 [iU]/L (Normal) Range: 0-32 AST (SGOT) 12 [iU]/L (Normal) Range: 0-40 Alkaline Phosphatase, S 91 [iU]/L (Normal) Range: 39-117 Bilirubin, Total 0.4 mg/dL (Normal) Range: 0.0-1.2 A/G Ratio 1.3 (Normal) Range: 1.2-2.2 Globulin, Total 3.1 g/dL (Normal) Range: 1.5-4.5 Albumin, Serum 4.1 g/dL (Normal) Range: 3.6-4.8 Protein, Total, Serum 7.2 g/dL (Normal) Range: 6.0-8.5 Calcium, Serum 9.4 mg/dL (Normal) Range: 8.7-10.3 Carbon Dioxide, Total 25 mmol/L (Normal) Range: 18-29 Chloride, Serum 104 mmol/L (Normal) Range: 96-106 Potassium, Serum 5.3 mmol/L (Abnormal) Range: 3.5-5.2 Sodium, Serum 144 mmol/L (Normal) Range: 134-144 BUN/Creatinine Ratio 23 (Normal) Range: 12-28 eGFR If Africn Am 102 mL/min/1.73 (Normal) eGFR If NonAfricn Am 89 mL/min/1.73 (Normal) Creatinine, Serum 0.73 mg/dL (Normal) Range: 0.57-1.00 BUN 17 mg/dL (Normal) Range: 8-27 Glucose, Serum 87 mg/dL (Normal) Range: 65-99 :18 LIPID PANEL (74424) Comments: PATIENT WAS FASTINGPERFORMED BY: [employer]6370 [facility] [id number] LDL/HDL Ratio 3.5 {ratio_units} (Abnormal) Range: 0.0-3.2 Comments: LDL/HDL Ratio Men Women 1/2 Avg.Risk 1.0 1.5 Av g.Risk 3.6 3.2 2X Avg.Risk 6.2 5.0 3X Avg.Risk 8.0 6.1 LDL Cholesterol Calc 131 mg/dL (Abnormal) Range: 0-99 VLDL Cholesterol Carlos 27 mg/dL (Normal) Range: 5-40 HDL Cholesterol 37 mg/dL (Abnormal) Triglycerides 134 mg/dL (Normal) Range: 0-149 Cholesterol, Total 195 mg/dL (Normal) Range: 100-199 93-Shm-95615:18 CBC W/AUTO DIFF WBC (94735) Comments: PATIENT WAS FASTINGPERFORMED BY: [facility]Co[facility] HospitalSvudfy7312 [facility] [id number] Immature Grans (Abs) 0.0 {x10E3/uL} (Normal) Range: 0.0-0.1 Immature Granulocytes 0 % (Normal) Baso (Absolute) 0.1 {x10E3/uL} (Normal) Range: 0.0-0.2 Eos (Absolute) 0.3 {x10E3/uL} (Normal) Range: 0.0-0.4 Monocytes(Absolute) 0.3 {x10E3/uL} (Normal) Range: 0.1-0.9 Lymphs (Absolute) 1.7 {x10E3/uL} (Normal) Range: 0.7-3.1 Neutrophils (Absolute) 4.6 {x10E3/uL} (Normal) Range: 1.4-7.0 Basos 1 % (Normal) Eos 4 % (Normal) Monocytes 4 % (Normal) Lymphs 25 % (Normal) Neutrophils 66 % (Normal) Platelets 295 {x10E3/uL} (Normal) Range: 150-379 RDW 15.7 % (Abnormal) Range: 12.3-15.4 MCHC 32.5 g/dL (Normal) Range: 31.5-35.7 MCH 28.7 pg (Normal) Range: 26.6-33.0 MCV 88 fL (Normal) Range: 79-97 Hematocrit 36.6 % (Normal) Range: 34.0-46.6 Hemoglobin 11.9 g/dL (Normal) Range: 11.1-15.9 RBC 4.14 {x10E6/uL} (Normal) Range: 3.77-5.28 WBC 6.9 {x10E3/uL} (Normal) Range: 3.4-10.8 :18 C-REACTIVE PROTEIN (96035) Comments: PATIENT WAS FASTINGPERFORMED BY: [facility]6370 [facility] [id number] C-Reactive Protein, Quant 13.1 mg/L (Abnormal) Range: 0.0-4.9 :18 TSH (24638) Comments: PATIENT WAS FASTINGPERFORMED BY: [facility]6370 [facility] [id number] TSH 4.600 {uIU/mL} (Abnormal) Range: 0.450-4.500 :18 T4, FREE (THYROXINE) (06916) Comments: PATIENT WAS FASTINGPERFORMED BY: [facility]6370 [facility] [id number] T4,Free(Direct) 0.87 ng/dL (Normal) Range: 0.82-1.77 :18 T3, FREE (TRIDOTHYRONINE) (43847) Comments: PATIENT WAS FASTINGPERFORMED BY: [facility]6370 [facility] [id number] Triiodothyronine,Free,Serum 2.5 pg/mL (Normal) Range: 2.0-4.4 :13 C-REACTIVE PROTEIN (26927) Comments: PATIENT NOT FASTINGPERFORMED BY: [facility]6370 [facility] [id number] C-Reactive Protein, Quant 24.5 mg/L (Abnormal) Range: 0.0-4.9 :13 TSH (38183) Comments: PATIENT NOT FASTINGPERFORMED BY: [facility]6370 [facility] [place] [id number] TSH 4.290 {uIU/mL} (Normal) Range: 0.450-4.500 :13 T4, FREE (THYROXINE) (33786) Comments: PATIENT NOT FASTINGPERFORMED BY: [facility]6370 [facility] [place] [id number] T4,Free(Direct) 0.83 ng/dL (Normal) Range: 0.82-1.77 :13 T3, FREE (TRIDOTHYRONINE) (81808) Comments: PATIENT NOT FASTINGPERFORMED BY: KATY [facility] Ojkjje97[address] [place] [id number] Triiodothyronine,Free,Serum 2.6 pg/mL (Normal) Range: 2.0-4.4 :38 C-REACTIVE PROTEIN (62615) Comments: PATIENT NOT FASTINGPERFORMED BY: [facility] Wqgbfn9188 [address]ublin [place] [id number] C-Reactive Protein, Quant 20.8 mg/L (Abnormal) Range: 0.0-4.9 :38 TSH (61937) Comments: PATIENT NOT FASTINGPERFORMED BY: [facility] Yseokv[address] [place] [id number] TSH 3.120 {uIU/mL} (Normal) Range: 0.450-4.500 :38 T4, FREE (THYROXINE) (98435) Comments: PATIENT NOT FASTINGPERFORMED BY: [facility] Uinghb7399 [address] [place] [id number] T4,Free(Direct) 0.79 ng/dL (Abnormal) Range: 0.82-1.77 :38 T3, FREE (TRIDOTHYRONINE) (01631) Comments: PATIENT NOT FASTINGPERFORMED BY: [facility] Oqazgn7945 [address] [place] [id number] Triiodothyronine,Free,Serum 2.4 pg/mL (Normal) Range: 2.0-4.4 :18 CALCIFIDIOL (28768) VIT D 25 Comments: PATIENT NOT FASTINGPERFORMED BY: [facility] Cugbjj5[address]Dublin [place] [id number] Vitamin D, 25-Hydroxy 32.7 ng/mL (Normal) Range: 30.0-100.0 Comments: Vitamin D deficiency has been defined by the [place] ofMedicine and an Endocrine Society practice guideline as alevel of serum 25-OH vitamin D less than 20 ng/mL (1,2).The Endocrine Society went on to further define vitamin Dinsufficiency as a level between 21 and 29 ng/mL (2).1. IOM ([place] of Medicine). 2010. Dietary reference intakes for calcium and D. [place]: The National [employer].2. Zenaida MF, Javan TIAN, Be ADAM, et al. Evaluation, treatment, and prevention of vitamin D deficiency: an Endocrine Society clinical practice guideline. JCEM. 2010; 96(1):1911-30. 7-Mbi-410506:18 Folate (09635) Comments: PATIENT NOT FASTINGPERFORMED BY: CB [facility] Whrina75[address]Dublin [place] [id number] Folate (Folic Acid), Serum 13.1 ng/mL (Normal) Comments: A serum folate concentration of less than 3.1 ng/mL isconsidered to represent clinical deficiency. 8-Kye-124730:18 VITAMIN B-12 (CYANOCOBALAMIN) Comments: PATIENT NOT FASTINGPERFORMED BY: CB [facility] Orpdbr38[address]Dublin [place] [id number] (74191) Vitamin B12 614 pg/mL (Normal) Range: 211-946 1-Atl-366084:18 SED RATE ERYTHROCYTE (75922) Comments: PATIENT NOT FASTINGPERFORMED BY: CB [facility] Telxtx1259 [address]Dublin [place] [id number] Sedimentation Rate-Westergren 25 mm/h (Normal) Range: 0-40 4-Vya-237658:18 RHEUMATOID FACTOR-QUANT (36944) Comments: PATIENT NOT FASTINGPERFORMED BY: CB [facility] Ibjqbz7200 [address]Dublin [place] [id number] RA Latex Turbid. <10.0 {IU/mL} (Normal) Range: 0.0-13.9 1-Amk-300533:18 METABOLIC PANEL, COMPREHENSIVE Comments: PATIENT NOT FASTINGPERFORMED BY: CB [facility] Kfefmp33[address]Dublin [place] [id number] (90735) ALT (SGPT) 16 [iU]/L (Normal) Range: 0-32 AST (SGOT) 17 [iU]/L (Normal) Range: 0-40 Alkaline Phosphatase, S 99 [iU]/L (Normal) Range: 39-117 Bilirubin, Total <0.2 mg/dL (Normal) Range: 0.0-1.2 A/G Ratio 1.5 (Normal) Range: 1.1-2.5 Comments: Effective January 28, 2017 the reference interval for A/G Ratio will be changing to: Age Male Female 0 - 7 d ays 1.1 - 2.3 1.1 - 2.3 8 - 30 days 1.2 - 2.8 1.2 - 2.8 1 - 6 months 1.3 - 3.6 1.3 - 3.6 7 months - 5 years 1.5 - 2.6 1.5 - 2.6 > 5 years 1.2 - 2.2 1.2 - 2.2 Globulin, Total 2.9 g/dL (Normal) Range: 1.5-4.5 Albumin, Serum 4.4 g/dL (Normal) Range: 3.6-4.8 Protein, Total, Serum 7.3 g/dL (Normal) Range: 6.0-8.5 Calcium, Serum 9.7 mg/dL (Normal) Range: 8.7-10.3 Carbon Dioxide, Total 25 mmol/L (Normal) Range: 18-29 Chloride, Serum 99 mmol/L (Normal) Range: 96-106 Potassium, Serum 4.6 mmol/L (Normal) Range: 3.5-5.2 Sodium, Serum 143 mmol/L (Normal) Range: 134-144 BUN/Creatinine Ratio 21 (Normal) Range: 11-26 eGFR If Africn Am 106 mL/min/1.73 (Normal) eGFR If NonAfricn Am 92 mL/min/1.73 (Normal) Creatinine, Serum 0.71 mg/dL (Normal) Range: 0.57-1.00 BUN 15 mg/dL (Normal) Range: 8-27 Glucose, Serum 99 mg/dL (Normal) Range: 65-99 7-Uix-113082:18 C-REACTIVE PROTEIN (85802) Comments: PATIENT NOT FASTINGPERFORMED BY: [facility] Ifalkw4499 [facility] [id number] C-Reactive Protein, Quant 21.6 mg/L (Abnormal) Range: 0.0-4.9 6-Yva-556465:18 CBC (AUTO) (62247) Comments: PATIENT NOT FASTINGPERFORMED BY: [place] 2506470 [facility] [id number] Platelets 277 {x10E3/uL} (Normal) Range: 150-379 RDW 15.8 % (Abnormal) Range: 12.3-15.4 MCHC 31.8 g/dL (Normal) Range: 31.5-35.7 MCH 27.9 pg (Normal) Range: 26.6-33.0 MCV 88 fL (Normal) Range: 79-97 Hematocrit 36.8 % (Normal) Range: 34.0-46.6 Hemoglobin 11.7 g/dL (Normal) Range: 11.1-15.9 RBC 4.20 {x10E6/uL} (Normal) Range: 3.77-5.28 WBC 7.8 {x10E3/uL} (Normal) Range: 3.4-10.8 3-Fqu-439828:18 LAURA (ANTINUCLEAR ANTIBODY) Comments: PATIENT NOT FASTINGPERFORMED BY: [facility]6370 [facility] [id number] (74317) LAURA Direct Negative (Normal) 2-Ifq-974134:18 T4, FREE (THYROXINE) (43311) Comments: PATIENT NOT FASTINGPERFORMED BY: [facility] [place] [address] [id number] T4,Free(Direct) 0.78 ng/dL (Abnormal) Range: 0.82-1.77 5-Adr-168844:18 T3, FREE (TRIDOTHYRONINE) (56659) Comments: PATIENT NOT FASTINGPERFORMED BY: [facility]6370 [facility] [id number] Triiodothyronine,Free,Serum 2.4 pg/mL (Normal) Range: 2.0-4.4 1-Pmi-028579:18 TSH (18073) Comments: PATIENT NOT FASTINGPERFORMED BY: [place] 2506470 [facility] [id number] TSH 2.590 {uIU/mL} (Normal) Range: 0.450-4.500 03-Qco-22617:02 Fecal Occult Blood , Office (25980) Fecal Occult Blood , Office (Inhouse) negative (Normal) 99-Iqt-537621:00 Basic Metabolic Panel (8) Comments: PATIENT NOT FASTINGPERFORMED BY: [facility] Jfncvz[address] [place] [place] [id number] Information: [id number] Calcium, Serum 9.5 mg/dL (Normal) Range: 8.7-10.2 Carbon Dioxide, Total 25 mmol/L (Normal) Range: 18-29 Chloride, Serum 102 mmol/L (Normal) Range: 97-108 Potassium, Serum 4.5 mmol/L (Normal) Range: 3.5-5.2 Sodium, Serum 143 mmol/L (Normal) Range: 134-144 BUN/Creatinine Ratio 22 (Normal) Range: 9-23 eGFR If Africn Am 111 mL/min/1.73 (Normal) eGFR If NonAfricn Am 97 mL/min/1.73 (Normal) Creatinine, Serum 0.67 mg/dL (Normal) Range: 0.57-1.00 BUN 15 mg/dL (Normal) Range: 6-24 Glucose, Serum 97 mg/dL (Normal) Range: 65-99 :12 HPV automatic Comments: Source.............Cervical;EndocervicalNo. of containers..01 CYTYC Thin Prep VialPATIENT NOT FASTINGPERFORMED BY: [facility] Pbmqozjlma844 [facility] [id number] BY: =G L (72127) [facility] Cterdqyakx619 [facility] [id number] Information: [id number] HPV, high-risk Negative Comments: This high-risk HPV test detects thirteen high- risk types(16/18/31/33/35/39/45/51/52/56/58/59/68) without differentiation. . (Normal) Note: PAPSMR (Normal) Comments: The Pap smear is a screening test designed to aid in the detection ofpremalignant and malignant conditions of the uterine cervix. It is not adiagnostic procedure and should not be used as the sole mean s of detectingcervical cancer. Both false-positive and false-negative reports do occur. .This liquid based ThinPrep(R) pap test w as screened with theuse of an image guided system. See Note . (Normal) DIAGNOSIS: SPRCS (Normal) Comments: NEGATIVE FOR INTRAEPITHELIAL LESION AND MALIGNANCY.Satisfactory for evaluation. Endocervical and/or squamous metaplasticcells (endocervical component) are present.V72.31 ; Routine gynecolog ical examivy Castañeda, Advertising Sales Assistant (ASCP) 7-Aot-387682:54 FECAL OCCULT HGB ASSAY- tubes sent home (19447) FECAL OCCULT HGB ASSAY, QUAL, 1-3 SIMULTANEOU negative (Normal) 70-Goi-386925:30 Basic Metabolic Profile (BMP) Comments: Serial Specimen #1, #2 or #3? 1'TROP' Serial specimen #1, #2, #3, or #4: 1Test performed at:[facility] [address] [place], [place] [id number] GAP 4 (Abnormal) Range: 5-15 CO2 29.0 mmol/L (Normal) Range: 21.0-32.0 CL 105 mmol/L (Normal) Range: 98-107 K 4.0 mmol/L (Normal) Range: 3.5-5.1 NA 138 mmol/L (Normal) Range: 136-145 CA 8.7 mg/dL (Normal) Range: 8.5-10.1 BUN/CRE 18.6 {RATIO} (Normal) Range: 10-20 Estimated CRCL 68.44 ml/min (Normal) EST GFR - AA 110 mL/min (Normal) EST GFR 91 mL/min (Normal) CREAT,SERUM 0.7 mg/dL (Normal) Range: 0.6-1.0 BUN 13 mg/dL (Normal) Range: 7-18 GLU 94 mg/dL (Normal) Range: 70-110 38-Swq-574372:30 CBC W/Diff, Automated Comments: Test performed at:[facility] [address] [place] [address] Absolute Lymph 2.45 {X10_3/ul} (Normal) Range: 0.83-4.51 Absolute Neut 5.5 {X10_3/uL} (Normal) Range: 2.0-7.7 IM GRAN % 0.200 % (Normal) Range: 0.0-0.9 Comments: IG% - Immature Granulocytes (promyelocytes, myelocytes andmetamyelocytes) > 1% indicates that a LEFT SHIFT is Present. BASO% 0.3 % (Normal) Range: 0-1 EO% 3.4 % (Normal) Range: 0-5 MONO% 6.0 % (Normal) Range: 0-10 LY% 27.9 % (Normal) Range: 19-41 NEUT% 62.2 % (Normal) Range: 47-70 MPV 8.7 fL (Normal) Range: 6.2-12.0 PLT 275 K/mm3 (Normal) Range: 150-450 RDW SD 47.6 fL (Abnormal) Range: 35.1-43.9 RDW CV 14.8 % (Abnormal) Range: 11.6-14.6 MCHC 32.0 {g/gl} (Normal) Range: 32-36 MCH 28.2 pg (Normal) Range: 27.0-32.0 MCV 88.2 fL (Normal) Range: 81-99 HCT 37.5 % (Normal) Range: 37-47 HGB 12.0 g/dL (Normal) Range: 12.0-15.0 RBC 4.25 {M/mm3} (Normal) Range: 4.2-5.4 WBC 8.8 K/mm3 (Normal) Range: 4.4-11.0 03-Iqp-824503:30 CK-MB Quantitative and Index Comments: Serial Specimen #1, #2 or #3? 1'TROP' Serial specimen #1, #2, #3, or #4: 1Test performed at:[facility] [address]endsuuft[address] [place], [place] [id number] CPKMB 1.0 ng/mL (Normal) Range: 0.0-5.0 Comments: CK-MB and RI Interpretation MB Relative Index Non-AMI <or= 5 NA Indeterminate > 5 <or= 4 AMI > 5 > 4 CPK TOTAL 79 U/L (Normal) Range: 26-192 99-Smi-550482:30 D-Dimer Quantitative (DVT/PE) Comments: Test performed at:[facility] [address] [place] [address] D-DIMER QUANT 3.99 {FEU/ug/m} (Abnormal) Range: 0.27-0.49 Comments: D-Dimer ELEVATED (>0.49): Additional studies and clinicalassessments are indicated to conclude diagnosis of:Deep Vein Thrombosis (DVT) or Pulmonary Embolism (PE)CRITICAL VALUE REPEATED AND VERIFIED. CALLED TO Axel SOFIA01/09/15 Chan Thomas.RESULTS READ BACK BY Axel AGUIRRE . 95-Dlm-278096:30 Troponin-I Comments: Serial Specimen #1, #2 or #3? 1'TROP' Serial specimen #1, #2, #3, or #4: 1Test performed at:[facility] [address] [place] [address] TROPONIN-I < 0.02 ng/mL (Normal) Comments: TROPONIN-I EXPECTED VALUES <0.05 NEGATIVE 0.06 - 0.59 AT RISK OF FL > OR = 0.60 SUGGEST FL 58-Dtl-673174:00 BMP GAP 8 (Normal) Range: 5-15 CL 107 mmol/L (Normal) Range: 98-107 CO2 25.0 mmol/L (Normal) Range: 21.0-32.0 K 4.1 mmol/L (Normal) Range: 3.5-5.1 NA 140 mmol/L (Normal) Range: 136-145 CA 9.3 mg/dL (Normal) Range: 8.5-10.1 BC 24.4 {RATIO} (Abnormal) Range: 10-20 GFR 68 mL/min (Normal) GFRAA 82 mL/min (Normal) BUN 22 mg/dL (Abnormal) Range: 7-18 CREAT 0.9 mg/dL (Normal) Range: 0.6-1.0 GLU 103 mg/dL (Normal) Range: 70-110 75-Irw-432648:41 CBC WITH MANUAL DIFF (14362) Comments: PERFORMED BY: [facility] Wzcdkn1126 [facility] [id number] Immature Grans (Abs) 0.0 {x10E3/uL} (Normal) Range: 0.0-0.1 Immature Granulocytes 0 % (Normal) Range: 0-2 Baso (Absolute) 0.1 {x10E3/uL} (Normal) Range: 0.0-0.2 Eos (Absolute) 0.2 {x10E3/uL} (Normal) Range: 0.0-0.4 Monocytes(Absolute) 0.4 {x10E3/uL} (Normal) Range: 0.1-0.9 Lymphs (Absolute) 2.6 {x10E3/uL} (Normal) Range: 0.7-3.1 Neutrophils (Absolute) 4.8 {x10E3/uL} (Normal) Range: 1.4-7.0 Basos 1 % (Normal) Range: 0-3 Eos 3 % (Normal) Range: 0-5 Monocytes 5 % (Normal) Range: 4-12 Lymphs 32 % (Normal) Range: 14-46 Neutrophils 59 % (Normal) Range: 40-74 Platelets 313 {x10E3/uL} (Normal) Range: 155-379 RDW 15.0 % (Normal) Range: 12.3-15.4 MCHC 31.9 g/dL (Normal) Range: 31.5-35.7 MCH 27.7 pg (Normal) Range: 26.6-33.0 MCV 87 fL (Normal) Range: 79-97 Hematocrit 37.0 % (Normal) Range: 34.0-46.6 Hemoglobin 11.8 g/dL (Normal) Range: 11.1-15.9 RBC 4.26 {x10E6/uL} (Normal) Range: 3.77-5.28 WBC 8.1 {x10E3/uL} (Normal) Range: 3.4-10.8 40-Gka-157828:41 METABOLIC PANEL, COMPREHENSIVE Comments: PERFORMED BY: [facility]6[address] [facility] [id number] (11690) ALT (SGPT) 12 [iU]/L (Normal) Range: 0-32 AST (SGOT) 19 [iU]/L (Normal) Range: 0-40 Alkaline Phosphatase, S 101 [iU]/L (Normal) Range: 39-117 Bilirubin, Total 0.4 mg/dL (Normal) Range: 0.0-1.2 A/G Ratio 1.6 (Normal) Range: 1.1-2.5 Globulin, Total 2.8 g/dL (Normal) Range: 1.5-4.5 Albumin, Serum 4.4 g/dL (Normal) Range: 3.5-5.5 Protein, Total, Serum 7.2 g/dL (Normal) Range: 6.0-8.5 Calcium, Serum 9.9 mg/dL (Normal) Range: 8.7-10.2 Carbon Dioxide, Total 26 mmol/L (Normal) Range: 19-28 Chloride, Serum 97 mmol/L (Normal) Range: 97-108 Potassium, Serum 4.3 mmol/L (Normal) Range: 3.5-5.2 Sodium, Serum 138 mmol/L (Normal) Range: 134-144 BUN/Creatinine Ratio 18 (Normal) Range: 9-23 eGFR If Africn Am 109 mL/min/1.73 (Normal) eGFR If NonAfricn Am 94 mL/min/1.73 (Normal) Creatinine, Serum 0.71 mg/dL (Normal) Range: 0.57-1.00 BUN 13 mg/dL (Normal) Range: 6-24 Glucose, Serum 83 mg/dL (Normal) Range: 65-99 :41 TSH (27375) Comments: PERFORMED BY: [employer] Wvusxa0534 [facility] [id number] TSH 3.940 {uIU/mL} (Normal) Range: 0.450-4.500 :41 LIPID PANEL (10215) Comments: PERFORMED BY: [employer] Zjgfay7250 [facility] [id number] LDL/HDL Ratio 3.6 {ratio_units} (Abnormal) Range: 0.0-3.2 LDL Cholesterol Calc 134 mg/dL (Abnormal) Range: 0-99 VLDL Cholesterol Carlos 18 mg/dL (Normal) Range: 5-40 HDL Cholesterol 37 mg/dL (Abnormal) Comments: According to ATP-III Guidelines, HDL-C >59 mg/dL is considered anegative risk factor for CHD. Triglycerides 90 mg/dL (Normal) Range: 0-149 Cholesterol, Total 189 mg/dL (Normal) Range: 100-199 :58 FSH and LH Comments: PATIENT NOT FASTINGPERFORMED BY: [facility]6[address] [facility] [id number] FSH 40.4 m[iU]/mL (Normal) Comments: Follicular phase 3.5 - 12.5 Ovulation phase 4.7 - 21.5 Luteal phase 1.7 - 7.7 Postmenopausal 25.8 - 134.8 LH 18.2 m[iU]/mL (Normal) Comments: Follicular phase 2.4 - 12.6 Ovulation phase 14.0 - 95.6 Luteal phase 1.0 - 11.4 Postmenopausal 7.7 - 58.5 :58 Microscopic Examination Comments: PATIENT NOT FASTINGPERFORMED BY: [facility]6[address] [facility] [id number] Bacteria None seen (Normal) Epithelial Cells (non renal) 0-10 {/hpf} (Normal) Range: 0 - 10 RBC 0-3 {/hpf} (Normal) Range: 0 - 3 WBC 0-5 {/hpf} (Normal) Range: 0 - 5 :58 TSH (00185) Comments: PATIENT NOT FASTINGPERFORMED BY: [facility]6[address] [facility] [id number] TSH 2.820 {uIU/mL} (Normal) Range: 0.450-4.500 :58 URINALYSIS, W/ MICRO (20753) Comments: PATIENT NOT FASTINGPERFORMED BY: [facility]6[address] [facility] [id number] Microscopic Examination See below: (Normal) Nitrite, Urine Negative (Normal) Urobilinogen,Semi-Qn 1.0 mg/dL (Normal) Range: 0.0-1.9 Bilirubin Negative (Normal) Occult Blood Negative (Normal) Ketones Negative (Normal) Glucose Negative (Normal) Protein Negative (Normal) WBC Esterase 1+ (Abnormal) Appearance Clear (Normal) Urine-Color Yellow (Normal) pH 7.5 (Normal) Range: 5.0-7.5 Specific [place] 1.020 (Normal) Range: 1.005-1.030 :58 MICROALBUMIN: CREATININE RATIO Comments: PATIENT NOT FASTINGPERFORMED BY: [employer] HospitalQlagfr3683 [facility] [id number] (74268) AND (52584) Microalb/Creat Ratio 5.6 {mg/g_creat} (Normal) Range: 0.0-30.0 Creatinine, Urine 116.4 mg/dL (Normal) Range: 15.0-278.0 Microalbumin, Urine 6.5 ug/mL (Normal) Range: 0.0-17.0 9-Jda-033154:58 METABOLIC PANEL, COMPREHENSIVE Comments: PATIENT NOT FASTINGPERFORMED BY: [employer] Rqqadn6449 [facility] [id number] (25661) ALT (SGPT) 20 [iU]/L (Normal) Range: 0-32 AST (SGOT) 22 [iU]/L (Normal) Range: 0-40 Alkaline Phosphatase, S 84 [iU]/L (Normal) Range: 25-150 Bilirubin, Total 0.2 mg/dL (Normal) Range: 0.0-1.2 A/G Ratio 1.6 (Normal) Range: 1.1-2.5 Globulin, Total 2.9 g/dL (Normal) Range: 1.5-4.5 Albumin, Serum 4.5 g/dL (Normal) Range: 3.5-5.5 Protein, Total, Serum 7.4 g/dL (Normal) Range: 6.0-8.5 Calcium, Serum 9.4 mg/dL (Normal) Range: 8.7-10.2 Carbon Dioxide, Total 24 mmol/L (Normal) Range: 20-32 Chloride, Serum 103 mmol/L (Normal) Range: 97-108 Potassium, Serum 4.2 mmol/L (Normal) Range: 3.5-5.2 Sodium, Serum 141 mmol/L (Normal) Range: 134-144 BUN/Creatinine Ratio 20 (Normal) Range: 9-23 eGFR If Africn Am 84 mL/min/1.73 (Normal) eGFR If NonAfricn Am 73 mL/min/1.73 (Normal) Creatinine, Serum 0.88 mg/dL (Normal) Range: 0.57-1.00 BUN 18 mg/dL (Normal) Range: 6-24 Glucose, Serum 77 mg/dL (Normal) Range: 65-99 4-Xmr-624968:58 CBC WITH MANUAL DIFF (26243) Comments: PATIENT NOT FASTINGPERFORMED BY: KATY LabCoSaint James HospitalAqodac4906 [facility] [id number] Immature Grans (Abs) 0.0 {x10E3/uL} (Normal) Range: 0.0-0.1 Immature Granulocytes 0 % (Normal) Range: 0-2 Baso (Absolute) 0.1 {x10E3/uL} (Normal) Range: 0.0-0.2 Eos (Absolute) 0.3 {x10E3/uL} (Normal) Range: 0.0-0.4 Monocytes(Absolute) 0.7 {x10E3/uL} (Normal) Range: 0.1-1.0 Lymphs (Absolute) 2.8 {x10E3/uL} (Normal) Range: 0.7-4.5 Neutrophils (Absolute) 5.0 {x10E3/uL} (Normal) Range: 1.8-7.8 Basos 1 % (Normal) Range: 0-3 Eos 3 % (Normal) Range: 0-7 Monocytes 8 % (Normal) Range: 4-13 Lymphs 32 % (Normal) Range: 14-46 Neutrophils 56 % (Normal) Range: 40-74 Platelets 257 {x10E3/uL} (Normal) Range: 140-415 RDW 14.1 % (Normal) Range: 12.3-15.4 MCHC 33.4 g/dL (Normal) Range: 31.5-35.7 MCH 29.2 pg (Normal) Range: 26.6-33.0 MCV 87 fL (Normal) Range: 79-97 Hematocrit 38.3 % (Normal) Range: 34.0-46.6 Hemoglobin 12.8 g/dL (Normal) Range: 11.1-15.9 RBC 4.39 {x10E6/uL} (Normal) Range: 3.77-5.28 WBC 8.8 {x10E3/uL} (Normal) Range: 4.0-10.5 25-Uvy-75710:19 LIPOPROTEIN, BLD, BY NMR Comments: PATIENT WAS FASTINGPERFORMED BY: [employer] Yym[address] [place] [id number] Information: [id number] (98523) Large VLDL-P 11.8 nmol/L (Abnormal) Comments: Small LDL-P, LDL Particle Size, Large HDL-P and Large VLDL-Phave been validated by [employer] but not cleared by US FDA;the clinical utility of these test results has not been fully establi shed. Patient Goals SPRCS (Normal) Comments: High Risk: LDL-P < 1000; Secondary goal: Small LDL-P < 527Moderately High-Risk: LDL-P < 1300; Secondary goal: Small LDL-P < 527 HDL-C 40 mg/dL (Abnormal) Large HDL-P < 0.7 umol/L (Abnormal) LDL Particle Size 19.9 nm (Abnormal) Comments: .Small (Pattern B) 18.0 - 20.5Large (Pattern A) 20.6 - 23.0. LDL-C 116 mg/dL (Abnormal) Comments: .Optimal < 100Above optimal 100 - 129Borderline 130 - 159High 160 - 189Very high > 189. Triglycerides 236 mg/dL (Abnormal) Cholesterol, Total 203 mg/dL (Abnormal) Small LDL-P 1444 nmol/L (Abnormal) Comments: .Low < 117Moderate 117 - 526Borderline 527 - 839High > 839. LDL-P 1862 nmol/L (Abnormal) Comments: .Optimal < 1000Above optimal 1000 - 1299Borderline 1300 - 1599High 1600 - 2000Very high > 2000. 28-Ydu-607298:53 BILAT SCRN DIGITAL & CAD Radiology Report See Note (Normal) Comments: Exam Number: [id number] MAMMOGRAM, BILATERAL SCREENING DIGITAL AND CAD HISTORYRoutine screening. Full field digital images were obtained in mediolateral oblique andcraniocaudal projections. CAD images w ere reviewed. The current study is compared to the examinations of February 05, 2002and March 24, 2004. The previous examinations are from the [facility]. There is a mild to modera te extent of fibroglandular parenchymapresent. There is no skin thickening or retraction, architecturaldistortion, or dominant mass. There are a few scattered benigncalcifications. If there is no susp icious palpable abnormality,followup mammogram in 1 year is recommended. IMPRESSIONThere is no radiographic evidence of malignancy identified. FINAL ASSESSMENTBenign findings. BIRADS Category 2. A yana er regarding these results has been sent to the patient. This interpretation was rendered by a radiologist certified under theMammography Quality Standards Act of 1992 (MQSA). The mammograms werealso examined with computer-aided detection software ([employer], [employer] Reported By: NURIA FAY M.D. 64-Eck-242435:52 DEXA BONE DENSITY STUDY (HP) Radiology Report See Note (Normal) Comments: Exam Number: [id number] BONE DENSITOMETRY HISTORYScreening/postmenopausal. TECHNIQUE Bone densitometry of the lumbar spine and both hips is now beingperformed. The best criteria for evaluation of os teoporosis is theT-value, which represents the comparison of the patient's bone mass jose expected peak bone mass. For most patients, the mean T-value of O8wfestwf L4 is used to evaluate the lumbar spi ne. To evaluate the hip,the lower T-value of the femoral neck or total hip is used. FINDINGSIn this patient, the mean T-value of L1 through L4 is -0.6 which isnormal. Digital lateral view for evaluati on of vertebral deformity only demonstrates no obvious compression fractures.The T-value of the left femoral neck is 0 which is normal.The T-value of the total left hip is 0.9 which is normal.The T-valu e of the right femoral neck is -0.2 which is normal.The T-value of the total right hip is 0.7 which is normal. IMPRESSIONBone densitometry of the lumbar spine and both hips is within normallimits. Reported By: NURIA FAY M.D. :24 Lipid Panel (29446) Comments: PATIENT WAS FASTINGClinical Information: ADD [id number] PERFORMED BY: LabJames Ville [id number] [facility] [id number] Cholesterol, Total 220 mg/dL (Abnormal) Range: 100-199 HDL Cholesterol 38 mg/dL (Abnormal) Comments: According to ATP-III Guidelines, HDL-C >59 mg/dL is considered anegative risk factor for CHD. LDL Cholesterol Calc 161 mg/dL (Abnormal) Range: 0-99 LDL/HDL Ratio 4.2 {ratio_units} (Abnormal) Range: 0.0-3.2 Triglycerides 106 mg/dL (Normal) Range: 0-149 VLDL Cholesterol Carlos 21 mg/dL (Normal) Range: 5-40 95-Sgt-451436:05 Thin prep Pap Comments: Source.............Cervical;EndocervicalLMP / Prev Treat...STS=[id number]. of containers..01 CYTYC Thin Prep VialPATIENT NOT FASTINGClinical Information: ADD [id number] (73754) PERFORMED BY: [facility] [address] [id number] . . (Normal) DIAGNOSIS: SPRCS (Normal) Comments: NEGATIVE FOR INTRAEPITHELIAL LESION AND MALIGNANCY.CELLULAR CHANGES ASSOCIATED WITH ATROPHY ARE PRESENT.Satisfactory for evaluation. Endocervical component may not bedistinguished in cases of atrophy.V 72.31 ; Routine gynecological examinationMaryam Pan Advertising Sales Assistant (ASCP) Note: PAPSMR (Normal) Comments: The Pap smear is a screening test designed to aid in the detection ofpremalignant and malignant conditions of the uterine cervix. It is not adiagnostic procedure and should not be used as the sole mean s of detectingcervical cancer. Both false-positive and false-negative reports do occur. .The HPV DNA reflex criteria were not met with this specimen resulttherefore, no HPV testing was performed. . 34-Vxx-090110:54 CBC with manual diff (46765) Comments: PATIENT WAS FASTINGClinical Information: ADD DRAW FEE [id number] ADD J [id number] PERFORMED BY: [facility]CoSaint James HospitalAiedsc9887 [facility] [id number] Baso (Absolute) 0.1 {x10E3/uL} (Normal) Range: 0.0-0.2 Basos 1 % (Normal) Range: 0-3 Eos 3 % (Normal) Range: 0-7 Eos (Absolute) 0.2 {x10E3/uL} (Normal) Range: 0.0-0.4 Hematocrit 37.4 % (Normal) Range: 34.0-44.0 Hemoglobin 12.8 g/dL (Normal) Range: 11.5-15.0 Lymphs 36 % (Normal) Range: 14-46 Lymphs (Absolute) 2.4 {x10E3/uL} (Normal) Range: 0.7-4.5 MCH 30.5 pg (Normal) Range: 27.0-34.0 MCHC 34.2 g/dL (Normal) Range: 32.0-36.0 MCV 89 fL (Normal) Range: 80-98 Monocytes 5 % (Normal) Range: 4-13 Monocytes(Absolute) 0.3 {x10E3/uL} (Normal) Range: 0.1-1.0 Neutrophils 55 % (Normal) Range: 40-74 Neutrophils (Absolute) 3.6 {x10E3/uL} (Normal) Range: 1.8-7.8 Platelets 262 {x10E3/uL} (Normal) Range: 140-415 Comments: Please note reference interval change RBC 4.19 {x10E6/uL} (Normal) Range: 3.80-5.10 RDW 14.1 % (Normal) Range: 11.7-15.0 WBC 6.6 {x10E3/uL} (Normal) Range: 4.0-10.5 [id number] Urinalysis, Office ([id number]) UA - BILIRUBIN Negative (Normal) UA - BLOOD Negative (Normal) UA - GLUCOSE Negative (Normal) UA - KETONES Negative mg/dL (Normal) UA - LEUKOCYTE ESTERASE Negative (Normal) UA - NITRITE Negative (Normal) UA - PH 5.0 (Normal) UA - PROTEIN Negative mg/dL (Normal) UA - SPECIFIC GRAVITY 1.010 (Normal) URINE UROBILINGN [place] TIMED Normal mg/dL (Normal) [id number] Metabolic Panel, Comprehensive Comments: PATIENT WAS FASTINGPERFORMED BY: LabCoSaint James HospitalQydghs2524 [facility] [id number] ([id number]) A/G Ratio 1.5 (Normal) Range: 1.1-2.5 Albumin, Serum 4.5 g/dL (Normal) Range: 3.5-5.5 Alkaline Phosphatase, S 101 [iU]/L (Normal) Range: 25-150 ALT (SGPT) 21 [iU]/L (Normal) Range: 0-40 AST (SGOT) 20 [iU]/L (Normal) Range: 0-40 Bilirubin, Total 0.4 mg/dL (Normal) Range: 0.1-1.2 BUN 13 mg/dL (Normal) Range: 5-26 BUN/Creatinine Ratio 17 (Normal) Range: 8-27 Calcium, Serum 9.8 mg/dL (Normal) Range: 8.5-10.6 Carbon Dioxide, Total 24 mmol/L (Normal) Range: 20-32 Chloride, Serum 102 mmol/L (Normal) Range: 97-108 Creatinine, Serum 0.76 mg/dL (Normal) Range: 0.57-1.00 eGFR >59 mL/min/1.73 (Normal) eGFR AfricanAmerican >59 mL/min/1.73 Comments: Note: Persistent reduction for 3 months or more in an eGFR<60 mL/min/1.73 m2 defines CKD. Patients with eGFR values>/=60 mL/min/1.73 m2 may also have CKD if evidence of persistentproteinuria is (Normal) present. Additional information may be found [email or web address]. Globulin, Total 3.0 g/dL (Normal) Range: 1.5-4.5 Glucose, Serum 90 mg/dL (Normal) Range: 65-99 Potassium, Serum 4.2 mmol/L (Normal) Range: 3.5-5.2 Protein, Total, Serum 7.5 g/dL (Normal) Range: 6.0-8.5 Sodium, Serum 140 mmol/L (Normal) Range: 135-145 93-Mrs-149540:54 HEPATIC FUNCTION PANEL Comments: PATIENT WAS FASTINGPERFORMED BY: [employer] [address] [employer] [facility] [id number] ([id number]) Bilirubin, Direct 0.12 mg/dL (Normal) Range: 0.00-0.40 97-Scq-809868:54 Lipid Panel (23078) Comments: PATIENT WAS FASTINGPERFORMED BY: [employer] [facility] [id number] Cholesterol, Total 203 mg/dL (Abnormal) Range: 100-199 Comment SPRCS (Normal) Comments: If initial LDL-cholesterol result is >100 mg/dL, assess forrisk factors. HDL Cholesterol 36 mg/dL (Abnormal) Comments: According to ATP-III Guidelines, HDL-C >59 mg/dL is considered anegative risk factor for CHD. LDL Cholesterol Calc 135 mg/dL (Abnormal) Range: 0-99 LDL/HDL Ratio 3.8 {ratio_units} (Abnormal) Range: 0.0-3.2 Triglycerides 162 mg/dL (Abnormal) Range: 0-149 VLDL Cholesterol Carlos 32 mg/dL (Normal) Range: 5-40 31-Hxv-66369:12 SHOULDER,MIN 2 VIEWS Radiology Report See Note (Normal) Comments: Exam Number: [id number] CLINICAL:Patient fell last Saturday, pain entire left shoulder X-RAY EXAMINATION: LEFT SHOULDER TECHNIQUE:2 views of the shoulder were obtained. COMPARISON:None. FINDINGS:There is an anterior/inferior subluxation of the humeral head in relation to the glenoid with impaction fracture of the humeral head on the inferior glenoid consistent with a Hill-Sachs fracture. Osseous densit ies adjacent to the superolateral humeral head are consistent with avulsions. The inferior glenoid detail is limited and the assessment post reduction is recommended. Normal acromion, without a demonst rated fracture or osseous abnormality. Normal visualized scapula without a demonstrated fracture or osseous destructive process. Normal acromioclavicular articulation, without an articular or osseous ab normality. There is no widening of the coracoclavicular distance. Normal visualized clavicle, without a fracture or osseous abnormality. Normal visualized pulmonary apex. IMPRESSION:Anterior/inferior l eft shoulder subluxation with impaction fracture of the humeral head and avulsion.Reassessment of the inferior glenoid cortex post reduction is recommended. Reported By: GEORGI ORDOÑEZ M.D. [id number]-[id number]:00 COMP METABOLIC A/G 1.3 {RATIO} (Normal) Range: 0.9-2.4 ALB 4.5 g/dL (Normal) Range: 3.4-5.0 ALK P 98 U/L (Normal) Range: 50-136 ALT 40 U/L (Normal) Range: 30-65 AST 24 U/L (Normal) Range: 15-37 BUN 17 mg/dL (Normal) Range: 7-18 BUN/CRE 17.0 {RATIO} (Normal) Range: 10-20 CA 9.6 mg/dL (Normal) Range: 8.5-10.1 CL 104 mmol/L (Normal) Range: 98-107 CO2 28.2 mmol/L (Normal) Range: 21.0-32.0 CREAT,SERUM 1.0 mg/dL (Normal) Range: 0.6-1.0 GAP 11 (Normal) Range: 5-15 GLOB 3.4 g/dL (Normal) Range: 2.7-4.2 GLU 83 mg/dL (Normal) Range: 70-110 K 4.7 mmol/L (Normal) Range: 3.5-5.1 NA 143 mmol/L (Normal) Range: 136-145 T BILI 0.30 mg/dL (Normal) Range: 0.00-1.00 T PROT 7.9 g/dL (Normal) Range: 6.4-8.2 41-Fil-[id number]:00 D BILI 0.12 mg/dL (Normal) Range: 0.00-0.30 Plan of Care Name Dates Details Instructions Hypercholesterolemia : Follow up in 6 months Indication: Hypercholesterolemia Hypercholesterolemia : Cholesterol mgmt Indication: Hypercholesterolemia Cough : *Antibiotic Usage Education - Female Indication: Cough Hypercholesterolemia : Cholesterol mgmt Indication: Hypercholesterolemia Nonsmoker : Eprescribed prescriptions (G8553) Indication: Nonsmoker Hypercholesterolemia : Cholesterol mgmt Indication: Hypercholesterolemia Mild pulmonary hypertension : Follow up in 2.5 months Indication: Mild pulmonary hypertension Mild pulmonary hypertension : Reviewed Diagnostic Tests Indication: Mild pulmonary hypertension Hypercholesterolemia : Cholesterol mgmt Indication: Hypercholesterolemia Abnormal TSH : Eprescribed prescriptions (G8553) Indication: Abnormal TSH Encounter for screening for malignant neoplasm of colon (Renamed from Special screening for malignant neoplasms, colon) : *Colon Cancer Screening Indication: Encounter for screening for malignant neoplasm of colon (Renamed from Special screening for malignant neoplasms, colon) BMI 40.0-44.9, adult : Eprescribed prescriptions (G8553) Indication: BMI 40.0-44.9, adult Fatigue : *fatigue education Indication: Fatigue BMI 40.0-44.9, adult : Eprescribed prescriptions (G8553) Indication: BMI 40.0-44.9, adult Cough : Follow up if no improvement or if symptoms worsen Indication: Cough Cough : Eprescribed prescriptions (G8553) Indication: Cough Encounter for screening for malignant neoplasm of colon (Renamed from Special screening for malignant neoplasms, colon) : *Colon Cancer Screening Indication: Encounter for screening for malignant neoplasm of colon (Renamed from Special screening for malignant neoplasms, colon) Mild pulmonary hypertension : Reviewed Diagnostic Tests Indication: Mild pulmonary hypertension Mild pulmonary hypertension : Eprescribed prescriptions (G8553) Indication: Mild pulmonary hypertension Diastolic dysfunction : Reviewed Diagnostic Tests Indication: Diastolic dysfunction Diastolic dysfunction : Follow up in 2 -3 weeks Indication: Diastolic dysfunction Chest pain, atypical : Follow up in 1 month Indication: Chest pain, atypical Stress reaction : Eprescribed prescriptions (G8553) Indication: Stress reaction Knee pain, bilateral : Knee Injections Indication: Knee pain, bilateral Stress reaction : Follow up in 1 month Indication: Stress reaction Chest pain : Eprescribed prescriptions (G8553) Indication: Chest pain Localized, primary osteoarthritis of lower leg : Knee Injections Indication: Localized, primary osteoarthritis of lower leg Localized, primary osteoarthritis of lower leg : Follow up june 07 for Left knee injection Indication: Localized, primary osteoarthritis of lower leg Therapeutic drug monitoring : Eprescribed prescriptions (G8553) Indication: Therapeutic drug monitoring Breast cancer screening (Renamed from Breast screening) : Follow up as needed Indication: Breast cancer screening (Renamed from Breast screening) Well Women Exam (V72.31)( Pap, Mammo, Routine Female and Dexa) (Renamed from Well Woman V72.31 (p,m,d)) : Self breast exam Indication: Well Women Exam (V72.31)( Pap, Mammo, Routine Female and Dexa) (Renamed from Well Woman V72.31 (p,m,d)) Well Women Exam (V72.31)( Pap, Mammo, Routine Female and Dexa) (Renamed from Well Woman V72.31 (p,m,d)) : *Colon Cancer Screening Indication: Well Women Exam (V72.31)( Pap, Mammo, Routine Female and Dexa) (Renamed from Well Woman V72.31 (p,m,d)) Well Women Exam (V72.31)( Pap, Mammo, Routine Female and Dexa) (Renamed from Well Woman V72.31 (p,m,d)) : *Well Female Maintenance (KF) Indication: Well Women Exam (V72.31)( Pap, Mammo, Routine Female and Dexa) (Renamed from Well Woman V72.31 (p,m,d)) Well Women Exam (V72.31)( Pap, Mammo, Routine Female and Dexa) (Renamed from Well Woman V72.31 (p,m,d)) : Pap/Pelvic/Bimanual/Rectal/Breast Exam was done. Indication: Well Women Exam (V72.31)( Pap, Mammo, Routine Female and Dexa) (Renamed from Therasis Woman V72.31 (p,m,d)) Knee pain, bilateral : Continue Current Prescription(s) Indication: Knee pain, bilateral Knee pain, bilateral : Diet, Exercise, and Wt loss Indication: Knee pain, bilateral Thrombophlebitis : Follow up in 2 weeks Indication: Thrombophlebitis Knee pain, bilateral : Eprescribed prescriptions (G8553) Indication: Knee pain, bilateral Localized, primary osteoarthritis of lower leg : Knee Injections Indication: Localized, primary osteoarthritis of lower leg Localized, primary osteoarthritis of lower leg : Knee Injections Indication: Localized, primary osteoarthritis of lower leg Knee pain, bilateral : Diet, Exercise, and Wt loss Indication: Knee pain, bilateral Hypercholesterolemia : Reviewed Lab Indication: Hypercholesterolemia Hypercholesterolemia : Cholesterol mgmt Indication: Hypercholesterolemia Obesity, unspecified : Diet, Exercise, and Wt loss Indication: Obesity, unspecified Elevated blood-pressure reading without diagnosis of hypertension : Reviewed Lab Indication: Elevated blood-pressure reading without diagnosis of hypertension Hypercholesterolemia : Follow up this week or next -needs after 2:30 Indication: Hypercholesterolemia Hypercholesterolemia : Cholesterol mgmt Indication: Hypercholesterolemia Elevated blood-pressure reading without diagnosis of hypertension : HTN/CAD Red Flags Indication: Elevated blood-pressure reading without diagnosis of hypertension Obesity, unspecified : Diet, Exercise, and Wt loss Indication: Obesity, unspecified Hypercholesterolemia : FOLLOW UP IN 3 MONTHS Indication: Hypercholesterolemia Well Women Exam (V72.31)( Pap, Mammo, Routine Female and Dexa) (Renamed from Therasis Woman V72.31 (p,m,d)) : Colon Cancer Screening Indication: Well Women Exam (V72.31)( Pap, Mammo, Routine Female and Dexa) (Renamed from Therasis Woman V72.31 (p,m,d)) Well Women Exam (V72.31)( Pap, Mammo, Routine Female and Dexa) (Renamed from Therasis Woman V72.31 (p,m,d)) : Pap/Pelvic/Bimanual/Rectal/Breast Exam was done. Indication: Well Women Exam (V72.31)( Pap, Mammo, Routine Female and Dexa) (Renamed from Therasis Woman V72.31 (p,,d)) Well Women Exam (V72.31)( Pap, Mammo, Routine Female and Dexa) (Renamed from Well Woman V72.31 (p,m,d)) : Self Breast Exam Education Indication: Well Women Exam (V72.31)( Pap, Mammo, Routine Female and Dexa) (Renamed from Well Woman V72.31 (p,m,d)) Well Women Exam (V72.31)( Pap, Mammo, Routine Female and Dexa) (Renamed from Well Woman V72.31 (p,m,d)) : Well Female Maintenance (KF) Indication: Well Women Exam (V72.31)( Pap, Mammo, Routine Female and Dexa) (Renamed from Well Woman V72.31 (p,m,d)) Screening for deficiency anemia : Follow up Indication: Screening for deficiency anemia Hypercholesterolemia : Diet and Exercise Indication: Hypercholesterolemia Planned Observations METABOLIC PANEL, COMPREHENSIVE ([id number])Indication: Hypercholesterolemia On: 64-Nvt-645400:54 Request CBC W/AUTO DIFF WBC (51079)Indication: Hypercholesterolemia On: 09-Mzu-794442:54 Request TSH (81402)Indication: Hypothyroidism (acquired) On: 22-Znb-636722:46 Request T4, FREE (THYROXINE) (43885)Indication: Hypothyroidism (acquired) On: 05-Ynu-001449:46 Request T3, FREE (TRIDOTHYRONINE) ([id number])Indication: Hypothyroidism (acquired) On: 02-Kux-949467:46 Request LIPOPROTEIN, BLD, BY NMR ([id number])Indication: Hypercholesterolemia On: 48-Rks-103443:46 Request METABOLIC PANEL, COMPREHENSIVE (64487)Indication: Mild pulmonary hypertension On: :08 Request CBC W/AUTO DIFF WBC (12247)Indication: Mild pulmonary hypertension On: :08 Request LIPID PANEL (82593)Indication: Hypercholesterolemia On: :08 Request TSH ([id number])Indication: Abnormal TSH On: :03 Request T4, FREE (THYROXINE) ([id number])Indication: Abnormal TSH On: :03 Request T3, FREE (TRIDOTHYRONINE) ([id number])Indication: Abnormal TSH On: :03 Request FECAL OCCULT- Tubes sent home (88474)Indication: Encounter for screening for malignant neoplasm of colon (Renamed from Special screening for malignant neoplasms, colon) On: 13-Khv-638813:20 Request Metabolic Panel, Basic ([id number])Indication: Therapeutic drug monitoring On: 99-Saf-486444:53 Request Thin Prep Pap (53414)Indication: Well Women Exam (V72.31)( Pap, Mammo, Routine Female and Dexa) (Renamed from Well Woman V72.31 (p,m,d)) On: 0-Aeq-954117:54 Request Metabolic Panel, Basic (23264)Indication: Therapeutic drug monitoring On: 84-Tiq-807063:25 Request FSH AND LH (38123)Indication: Amenorrhea On: 6-Pji-585264:34 Request Lipid Panel (31990)Indication: Hypercholesterolemia On: 03-Zwn-820055:20 Request OCCULT BLOOD FECES SCREEN- card done in office ([id number])Indication: Well Women Exam (V72.31)( Pap, Mammo, Routine Female and Dexa) (Renamed from Well Woman V72.31 (p,m,d)) On: 09-Rsh-722500:24 Request METABOLIC PANEL, COMPREHENSIVE (47632)Indication: PRURITUS OF SKIN, NOS On: 07-Jxp-891570:44 Request HEPATIC FUNCTION PANEL ([id number])Indication: PRURITUS OF SKIN, NOS On: :44 Request Planned Encounters Medical; 6 Month FU - On: 08-Jun-2019 8:15 [facility] Jenny James DO, DO, Kathleen Planned Procedures Echo CompleteBy: Jenny James DO On: 08-Dec-2018 Intent Jenny James DO CXR PA & LAT ([id number])By: Jacob RODRIGUEZ, On: 08-Dec-2018 Intent Jenny Agosto DO ELECTROCARDIOGRAM, COMPLETE (ECG) On: 06-Jun-2018 Intent ([id number])By: Jenny James DO, DO, Comments: nsr no acute chg Jenny ELECTROCARDIOGRAM, COMPLETE (ECG) On: 21-Aug-2017 Intent ([id number])By: Jenny James DO, DO, Comments: nsr no acute chg Jenny Echo CompleteBy: Jenny James DO On: 21-Aug-2017 Intent Dez James DOeen MAMMOGRAM, SCREENING, BOTH BREAST On: 27-Jun-2016 Intent ([id number])By: Jenny James DO DODezJenny Nuclear Stress Test/Stress On: 13-Jun-2016 Intent SPECT/AdenosineBy: David Rajput MD PFT - CompleteBy: Jacob DO Jenny On: 23-May-2016 Intent Jacob DO Jenny Echo CompleteBy: Jacob DO Jenny On: 18-Apr-2016 Intent Jacob DO Jenny Kenalog Injection, 10 mgm ([id number])By: On: 04-Aug-2015 Intent Meghann Steele MD DEXA SCAN AXIAL SKELETON ([id number])By: John On: 17-Jan-2015 Intent Raine THAKKAR MAMMOGRAM, SCREENING, BOTH BREAST On: 17-Jan-2015 Intent ([id number])By: Raine Lopez CNP DRAIN/INJECT MAJOR JOINT OR BURSA On: 01-Feb-2014 Intent ([id number])By: Jenny James DO Jacob DOJenny Radiology - Ankle - RightBy: Jacob DO, On: 06-Jan-2014 Intent Jenny Jacob DO, Jenny Radiology - Knee - RightBy: Jacob DO, On: 06-Jan-2014 Intent Jenny Jacob DO, Jenny Radiology - Left KneeBy: Jacob DO, On: 06-Jan-2014 Intent Jenny Jacob DO Jenny Eprescribed prescriptions (G8553)By: On: 29-Dec-2012 Intent Jacob DOAnnieJenny Jacob DO, Jenny EKG ([id number])By: Jenny James DO Jacob On: 22-Dec-2012 Intent Jenny RODRIGUEZ Comments: nsr no acute chg DXA, BONE DENSITY, AXIAL SKELETON On: 05-May-2009 Intent ([id number])By: Raine Lopez CNP MAMMOGRAM, SCREENING, BOTH BREASTS On: 05-May-2009 Intent ([id number])By: Raine Lopez CNP Planned Medications INJECTION, TRIAMCINOLONE ACETONIDE, NOT OTHERWISE SPECIFIED, 10 MG Ordered: 04-Aug-2015 Pending Meghann Steele MD Instructions Name Dates Details Nonsmoker : How to access health information online Indication: Nonsmoker Nonsmoker : How to access health information online - Detail Indication: Nonsmoker Nonsmoker : Patient Instructions Indication: Nonsmoker Nonsmoker : How to access health information online Indication: Nonsmoker Nonsmoker : How to access health information online - Detail Indication: Nonsmoker Nonsmoker : Patient Instructions Indication: Nonsmoker Abnormal TSH : How to access health information online Indication: Abnormal TSH Abnormal TSH : How to access health information online - Detail Indication: Abnormal TSH Abnormal TSH : Patient Instructions Indication: Abnormal TSH Nonsmoker : How to access health information online Indication: Nonsmoker Nonsmoker : How to access health information online - Detail Indication: Nonsmoker Nonsmoker : Patient Instructions Indication: Nonsmoker BMI 40.0-44.9, adult : How to access health information online Indication: BMI 40.0-44.9, adult BMI 40.0-44.9, adult : How to access health information online - Detail Indication: BMI 40.0-44.9, adult BMI 40.0-44.9, adult : Patient Instructions Indication: BMI 40.0-44.9, adult BMI 40.0-44.9, adult : How to access health information online Indication: BMI 40.0-44.9, adult BMI 40.0-44.9, adult : How to access health information online - Detail Indication: BMI 40.0-44.9, adult BMI 40.0-44.9, adult : Patient Instructions Indication: BMI 40.0-44.9, adult Cough : How to access health information online Indication: Cough Cough : How to access health information online - Detail Indication: Cough Cough : Patient Instructions Indication: Cough Encounter for screening mammogram for breast cancer (Renamed from Encounter for screening mammogram for malignant neoplasm of breast) : Patient Instructions Indication: Encounter for screening mammogram for breast cancer (Renamed from Encounter for screening mammogram for malignant neoplasm of breast) Mild pulmonary hypertension : How to access health information online Indication: Mild pulmonary hypertension Mild pulmonary hypertension : How to access health information online - Detail Indication: Mild pulmonary hypertension Mild pulmonary hypertension : Patient Instructions Indication: Mild pulmonary hypertension Chest pain, atypical : How to access health information online Indication: Chest pain, atypical Chest pain, atypical : How to access health information online - Detail Indication: Chest pain, atypical Chest pain, atypical : Patient Instructions Indication: Chest pain, atypical Stress reaction : How to access health information online Indication: Stress reaction Stress reaction : How to access health information online - Detail Indication: Stress reaction Stress reaction : Patient Instructions Indication: Stress reaction Knee pain, bilateral : How to access health information online Indication: Knee pain, bilateral Knee pain, bilateral : How to access health information online - Detail Indication: Knee pain, bilateral Knee pain, bilateral : Patient Instructions Indication: Knee pain, bilateral Chest pain : How to access health information online Indication: Chest pain Chest pain : How to access health information online - Detail Indication: Chest pain Chest pain : Patient Instructions Indication: Chest pain Therapeutic drug monitoring : How to access health information online Indication: Therapeutic drug monitoring Therapeutic drug monitoring : How to access health information online - Detail Indication: Therapeutic drug monitoring Knee pain, bilateral : How to access health information online Indication: Knee pain, bilateral Knee pain, bilateral : How to access health information online - Detail Indication: Knee pain, bilateral Knee pain, bilateral : Patient Instructions Indication: Knee pain, bilateral Knee pain, bilateral : How to access health information online Indication: Knee pain, bilateral Knee pain, bilateral : How to access health information online - Detail Indication: Knee pain, bilateral Knee pain, bilateral : Patient Instructions Indication: Knee pain, bilateral Hypercholesterolemia : Patient Instructions Indication: Hypercholesterolemia Obesity, unspecified : Patient Instructions Indication: Obesity, unspecified Encounters Office Visit On: 08-Dec-2018 9:55 Encounter Reason: Follow up for chronic medical issues - The patient feels well with minor complaints (has had a cough for 2 months), has good energy level and is sleeping well. Patient has been compliant with instructio End: 08-Dec-2018 11:00 ns. Current medication use: no side effects and compliant with dosing regimen. Patient sleeps 6 hours per night. Nutrition: balanced diet and supplemental vitamins. The medical issues the patient is fol lowing up for include All identified problems below, high blood pressure, high cholesterol and hypothyroid. blood pressure range :. Note for Follow up for chronic medical issues: i have a cough for 2m onths- initially prod not really anymore -- i think its post nasal drip -tried otc and nothing worksEncounter Diagnosis: Nonsmoker, BMI 45.0-49.9, adult, Hypercholesterolemia, Hypothyroidism (acquired), Mild pulmonary hypertension, Cough, Noncompliance with medications [facility] Office Visit On: 06-Jun-2018 7:52 Encounter Reason: Follow up for chronic medical issues - The patient feels well with minor complaints, has good energy level and is sleeping well. Patient has been compliant with instructions. Current medication use: no End: 06-Jun-2018 13:47 side effects and compliant with dosing regimen. Patient sleeps 6 hours per night. Nutrition: balanced diet and supplemental vitamins. The medical issues the patient is following up for include All ident ified problems below, high blood pressure, high cholesterol and hypothyroid.Encounter Diagnosis: BMI 45.0-49.9, adult, Nonsmoker, Hypothyroidism (acquired), Mild pulmonary hypertension, Hypercholesterolemia, Obesity, unspecified [facility] Office Visit On: 21-Aug-2017 8:03 Encounter Reason: Follow up tests - Diagnostic tests include other (labs)., [ADDITIONAL REASON] Follow up for chronic medical issues - The patient feels well with no complaints End: 21-Aug-2017 9:22 , has good energy level and is sleeping well. Patient has been compliant with instructions. Current medication use: no side effects and compliant with dosing regimen. Patient sleeps 7 hours per night. N utrition: balanced diet. The medical issues the patient is following up for include All identified problems below and high cholesterol. Encounter Diagnosis: Nonsmoker, BMI 40.0-44.9, adult, Abnormal TSH, Hypercholesterolemia, CRP elevated, Localized, primary osteoarthritis of lower leg, Diastolic dysfunction, Mild pulmonary hypertension, Hypothyroidism (acquired), Grieving, Influenza vaccination declined (Renamed from Refused influenza vaccine) [facility] Office Visit On: 19-Jun-2017 14:26 Encounter Reason: Follow up tests - Date: (06/06/17 labs).Encounter Diagnosis: BMI 45.0-49.9, adult, Nonsmoker, CRP elevated, Localized, primary osteoarthritis of lower leg, Abnormal TSH, Family history of diabetes mellitus, Hypercholesterolemia, End: 19-Jun-2017 15:13 Diastolic dysfunction [facility] Office Visit On: 27-Mar-2017 14:16 Encounter Reason: Follow up tests - Diagnostic tests include mammography and other (blood work).Encounter Diagnosis: BMI 40.0-44.9, adult, Nonsmoker, End: 27-Mar-2017 15:06 Encounter for screening for malignant neoplasm of colon (Renamed from Special screening for malignant neoplasms, colon), Borderline abnormal thyroid function test, CRP elevated [facility] Office Visit On: 29-Jan-2017 14:23 Encounter Diagnosis: Fatigue End: 29-Jan-2017 14:33 [facility] Office Visit On: 24-Jan-2017 10:43 Encounter Reason: Follow up acute care visit - The patient feeling better since last seen. Patient has been compliant with instructions. Current medication use: no side effects and compliant with dosing regimen.Encounter Diagnosis: Nonsmoker, End: 24-Jan-2017 12:14 BMI 40.0-44.9, adult, Cough, Post-nasal drainage, Hoarseness, Fatigue [facility] Office Visit On: 18-Dec-2016 15:20 Encounter Reason: Cold Symptoms - Symptoms include dry cough. Onset was sudden 4 day(s) ago. The patient describes this as worsening.Encounter Diagnosis: Cough, Thrush End: 18-Dec-2016 16:13 [facility] Office Visit On: 04-Jul-2016 8:55 Encounter Diagnosis: Encounter for screening for malignant neoplasm of colon (Renamed from Special screening for malignant neoplasms, colon) End: 04-Jul-2016 9:05 [facility] Office Visit On: 27-Jun-2016 14:40 Encounter Reason: Physical female exam - Last seen between 1-3 months ago. General health: feels well with minor complaints, has good energy level and is sleeping well. The patient's appetite is normal. Nutrition: normal End: 27-Jun-2016 15:24 /adequate. Exercises 2 days per week. Sleeps on average 6 hours per night. Normal bowel and bladder habits. Safety measures include appropriate use of safety belts and home smoke detectors. There are no current emotional problems. screening, colonoscopy (?) and screening, mammography (2015).Encounter Diagnosis: Annual physical exam, Nonsmoker, BMI 45.0-49.9, adult, Family history of diabetes mellitus type II, Encounter for screening for malignant neoplasm of colon (Renamed from Special screening for malignant neoplasms, colon), Encounter for screening mammogram for breast cancer (Renamed from Encounter for screening mammogram f or malignant neoplasm of breast) [facility] Phone Encounter On: 13-Jun-2016 16:32 [facility] End: 27-Nov-2016 12:05 Office Visit On: 13-Jun-2016 13:18 Encounter Reason: Follow up Meds - Note for Follow up Meds: started BB and stopped citalopram, referred to Dr Cote to puomnary hypertensionEncounter Diagnosis: Mild pulmonary hypertension, Chest pain, Diastolic dysfunction, Hypercholesterolemia, End: 13-Jun-2016 15:51 Stress reaction [facility] Office Visit On: 23-May-2016 14:38 Encounter Reason: Follow up tests - Date: (05/09/16 echo).Encounter Diagnosis: Diastolic dysfunction, Mild pulmonary hypertension, Nonsmoker, BMI 45.0-49.9, adult, Stress reaction End: 23-May-2016 15:24 [facility] Office Visit On: 18-Apr-2016 14:45 Encounter Reason: Chest Pain - Symptoms include chest pain. The pain is located in the substernal area. The patient describes the pain as aching, dull (always feeling like something is there) and sharp (random sharp pain End: 18-Apr-2016 15:35 s). Onset was gradual (since ). Associated symptoms include anxiety.Encounter Diagnosis: Stress reaction, Nonsmoker, BMI 45.0-49.9, adult, Chest pain, atypical, Heart murmur [facility] Office Visit On: 04-Aug-2015 11:37 Encounter Reason: Injections - The medication the patient is here to receive is other (right hip 2cc marcarine lot# [id number] EXP 03-18-2016 1 CC KENALOG [id number] exp ).Encounter Diagnosis: Knee pain, bilateral End: 04-Aug-2015 13:03 [facility] Office Visit On: 20-Jul-2015 12:51 Encounter Reason: Follow up ER - Reason for hospitalization note: (CP, I went ot er and they did cxr and ecg and all sorts of tests and thought I had pneumonia or a heart attack but they said I was fine).Encounter Diagnosis: Chest pain, End: 20-Jul-2015 13:38 Stress reaction [facility] Office Visit On: 06-Jun-2015 14:54 Encounter Reason: Knee Pain - This condition occurred without any known injury. The injury involved the right knee. The last clinic visit was month(s) ago. No changes in management were made at the last visit. Symptoms i End: 06-Jun-2015 18:00 nclude knee pain and decreased range of motion. Symptoms are located in the right knee.Encounter Diagnosis: Knee pain, bilateral, Localized, primary osteoarthritis of lower leg [facility] Office Visit On: 27-May-2015 13:58 Encounter Reason: Joint Pain - The last clinic visit was month(s) ago. No changes in management were made at the last visit. Symptoms include joint pain., End: 27-May-2015 14:57 [ADDITIONAL REASON] Knee Pain - This condition occurred without any known injury. The injury involved the right knee. The last clinic visit was month(s) ago. No changes in management were made at the l ast visit. Symptoms include knee pain and decreased range of motion. Symptoms are located in the right knee. Encounter Diagnosis: Knee pain, bilateral, Localized, primary osteoarthritis of lower leg, Therapeutic drug monitoring [facility] Office Visit On: 17-Jan-2015 15:36 Encounter Reason: Well Women Exam - The patient feels well with no complaints, has good energy level and is sleeping well. Pap smear: date of last pap: (2008). Patient exercises a weekly ( I am busy at work ). The mia End: 17-Jan-2015 16:09 ent's libido is normal. The patient reports that she performs monthly self breast exam. The patient denies the use of oral contraceptives or hormone replacement therapy. breast cancer in first degree relative (sister).Encounter Diagnosis: Breast cancer screening (Renamed from Breast screening), Well Women Exam (V72.31)( Pap, Mammo, Routine Female and Dexa) (Renamed from Well Woman V72.31 (p,m,d)) [facility] Office Visit On: 30-Jun-2014 15:32 Encounter Reason: Joint Pain - The last clinic visit was month(s) ago. No changes in management were made at the last visit. Symptoms include joint pain.Encounter Diagnosis: Knee pain, bilateral, Thrombophlebitis, Therapeutic drug monitoring End: 30-Jun-2014 16:26 [facility] Office Visit On: 18-Jun-2014 11:53 Encounter Reason: Joint Pain - The last clinic visit was month(s) ago. No changes in management were made at the last visit. Symptoms include joint pain.Encounter Diagnosis: Knee pain, bilateral, Thrombophlebitis End: 18-Jun-2014 12:25 [facility] Office Visit On: 01-Feb-2014 9:17 Encounter Reason: Knee Pain - This condition occurred without any known injury. The injury involved the right knee. The last clinic visit was month(s) ago. No changes in management were made at the last visit. Symptoms i End: 01-Feb-2014 16:38 nclude knee pain and decreased range of motion. Symptoms are located in the right knee.Encounter Diagnosis: Localized, primary osteoarthritis of lower leg, Knee pain, bilateral [facility] Office Visit On: 27-Jan-2014 13:35 Encounter Reason: Follow up tests - Date: (01/06/14 x-ray).Encounter Diagnosis: Ankle pain, Knee pain, bilateral, Calcaneal spur, Hypercholesterolemia (272.0), Localized, primary osteoarthritis of lower leg End: 27-Jan-2014 14:58 [facility] Office Visit On: 06-Jan-2014 14:27 Encounter Reason: Follow up for chronic medical issues - The patient feels well with minor complaints, has good energy level and is sleeping well. Patient has been compliant with instructions. Current medication use: no End: 06-Jan-2014 15:36 side effects and compliant with dosing regimen. Patient sleeps 7 hours per night. Nutrition: balanced diet. The medical issues the patient is following up for include All identified problems below and high cholesterol. blood pressure range :. Encounter Diagnosis: Hypercholesterolemia (272.0), Ankle pain, Knee pain, bilateral [facility] Office Visit On: 29-Dec-2012 14:46 Encounter Reason: Follow up tests - Date: (12/26/12).Encounter Diagnosis: Elevated Blood Pressure without diagnosis of Hypertension (796.2), Obesity,unspecified (278.00) End: 29-Dec-2012 15:08 [facility] Office Visit On: 22-Dec-2012 13:38 Encounter Reason: Follow up for chronic medical issues - The patient feels well with minor complaints, has good energy level and is sleeping well. Patient has been compliant with instructions. Patient sleeps 6 hours per End: 22-Dec-2012 15:13 night. Nutrition: balanced diet and supplemental vitamins. The medical issues the patient is following up for include All identified problems below and high cholesterol. blood pressure range : and weight :.Encounter Diagnosis: Hypercholesterolemia (272.0), Elevated Blood Pressure without diagnosis of Hypertension (796.2), Obesity,unspecified (278.00), Amenorrhea(626.0) [facility] Office Visit On: 16-Nov-2009 8:55 Encounter Reason: Follow up for chronic medical issues - The patient feels well with no complaints ,has good energy level and is sleeping well. Patient has been compliant with instructions. Patient sleeps 7 hours per nig End: 16-Nov-2009 9:51 ht. Nutrition: balanced diet. The medical issues the patient is following up for include All identified problems below ,high cholesterol and other (obesity). blood pressure range : (110/70). , [ADDITIONAL REASON] Follow up, Laboratory Test Results - Date: (11/14/09). Current symptoms/reason for visit include/s Follow up visit with no current symptoms. There is no family history of breast can cer ,cardiovascular disease ,cystic fibrosis ,Down's syndrome ,mental retardation or myocardial infarction before age 55. Past medical history includes elevated cholesterol and other (obesity). Encounter Diagnosis: Hypercholesterolemia (272.0) [facility] Office Visit On: 04-Aug-2009 14:35 Encounter Reason: Follow up, Diagnostic Procedure Results - Diagnostic tests include other (Bone Density, mammo). Date: (06/09/09). , [ADDITIONAL REASON] Follow up, Laboratory Test Results - Lab results: other (Lipid, ). Date: (08/02/09). End: 04-Aug-2009 15:22 Encounter Diagnosis: Hypercholesterolemia (272.0) [facility] Office Visit On: 05-May-2009 14:42 Encounter Diagnosis: Hypercholesterolemia (272.0) End: 05-May-2009 14:44 [facility] Office Visit On: 05-May-2009 11:22 Encounter Reason: Well Women Exam - The patient feels well with no complaints ,has good energy level and is sleeping well. Pap smear: date of last pap: (approx 5 years ago). Contraceptive history: The patient is not usin End: 05-May-2009 14:26 g any method of contraception at this time. Patient exercises a daily. The patient's libido is decreased. The patient reports that she performs monthly self breast exam. Calcium intake includes 1200 mg daily supplment. The patient denies the use of oral contraceptives or hormone replacement therapy. Menstruation: Last menstrual period date: (3 years ago). Encounter Diagnosis: Well Women Exam (V72.31)( Pap, Mammo, Routine Female and Dexa) (Renamed from Well Woman V72.31 (p,m,d)) [facility] Office Visit On: 04-May-2009 8:07 Encounter Reason: Follow up for chronic medical issues - The patient feels well with no complaints ,has good energy level and is sleeping well. Patient has been compliant with instructions. Current medication use: no sarina End: 04-May-2009 10:19 e effects and compliant with dosing regimen. Patient sleeps 6 hours per night. Nutrition: balanced diet. The medical issues the patient is following up for include high cholesterol. Encounter Diagnosis: Hypercholesterolemia (272.0), Shoulder pain (719.41), Obesity,unspecified (278.00), FAMILY HX - DIABETES (V18.0), SCREENING FOR ANEMIA (V78.0) [facility] Office Visit On: 05-May-2008 15:18 Encounter Reason: Follow up ER - Reason for hospitalization note: (rash and really bad itching). Patient has been compliant with instructions. Current medication use: no side effects and compliant with dosing regimen. Th End: 05-May-2008 15:58 e patient feels well with minor complaints ,has good energy level and is sleeping well. Encounter Diagnosis: PRURITUS OF SKIN, NOS (698.9) [facility] Office Visit On: 30-Sep-2006 15:58 Encounter Reason: Follow up for chronic medical issues - The patient feels well with no complaints (patient had a health check done at her work place, her chol was 201 and hdl was 39 and that was fasting.). Patient has b End: 30-Sep-2006 16:21 een compliant with instructions. Current medication use: no side effects. Patient sleeps 7 hours per night. Impact of disease: no overall impact. Nutrition: balanced diet. Encounter Diagnosis: Hypercholesterolemia (272.0) [facility] Historical Summary On: 25-Sep-2006 13:03 [facility] End: 25-Sep-2006 13:06 Payers Ada Carlson; santiago guarantor
--- OUTSIDE RECORDS SUMMARY | 2019-02-09 22:43 | XMS RPT_ITS ---
:1955 Author Organization OHIP Care Team Providers Name Role Phone Jenny James DO Attending Unavailable Jacob DO, Jenny Referring Unavailable Jacob DO Jenny Consulting Unavailable Jacob, Jenny Attending Unavailable Jacbo, Jenny Referring Unavailable Jacob, Jenny Primary Care Unavailable Jacob, Jenny Attending Unavailable Jacob, Jenny Referring Unavailable Jacob, Jenny Primary Care Unavailable PROBLEMS PROBLEMS No Problem Records FoundPROCEDURES PROCEDURES No Procedure Records FoundRESULTS RESULTS ECHOCARDIOGRAM COMPLETE Observed: 12/12/2018 Status: F Source: [place] 4:29 PM [facility] REPOSITORY [facility] Cardiovascular Services [address] [place] [address] Echo Complete 12/12/18 1354 MR#: [id number] Acct: [id number] Name: MONIE CARLSON Rep #: [id number] : 1955 63 From: Vahid Mckeon MD Attending Dr: Jenny James DO Status: REG CLI Ordering Dr: Jenny James DO Date: 12/12/18 Location: CVS Sex: F C Admitted: Reason For Study: PHTN Procedure This was a 2D Doppler, Color Flow transthoracic echocardiogram. The study was technically difficult. Exam performed in department. Left Ventricle Normal LV size. Left ventricular systolic function is normal. The estimated ejection fraction is 65 %. No evidence for diastolic dysfunction. No regional wall motion abnormalities noted. Right Ventricle Normal RV size. Normal systolic function. Atria The left atrium is mildly enlarged. Normal right atrium. No doppler evidence for ASD. Mitral Valve There is no mitral annular calcification. Normal mitral valve. The mitral valve chordae are thickened and/or calcified. Trivial mitral valve insufficiency. Tricuspid Valve Normal tricuspid valve. Trivial tricuspid valve insufficiency. Right ventricular systolic pressure estimated to be 43 mmHg. Aortic Valve Trisinus/trileaflet aortic valve. Normal aortic valve. Pulmonic Valve The pulmonic valve is not well visualized. Trivial pulmonic valve insufficiency. Great Vessels Normal sized aortic root. Pericardium/Pleural No pericardial effusion. MMode/2D Measurements AND Calculations LVIDd: 4.0 cm IVSd: 1.1 cm Ao root diam: 3.8 cm LVIDs: 2.2 cm LVPWd: 1.1 cm RVDd: 3.6 cm FS: 46.3 % LAV(MOD-bp): 56.0 ml EDV(MOD-sp4): 105.1 ml EDV(MOD-sp2): 95.0 ml LAV(MOD-bp) Indexed: 26.0 ml/m2 ESV(MOD-sp4): 26.6 ml EF(MOD-sp2): 68.3 % LAV(MOD-sp2): 59.0 ml EF(MOD-sp4): 74.7 % LAV(MOD-sp4): 54.2 ml SV(MOD-sp4): 78.5 ml SV(MOD-sp2): 64.8 ml LA A4 area: 19.5 cm2 LA dimension(2D): 4.3 cm RA A4 area: 17.4 cm2 Time Measurements MV dec time: 0.23 sec Doppler Measurements AND Calculations MV E max sherwin: 106.9 cm/sec Lat Peak E' Sherwin: 10.4 cm/sec Med Peak E' Sherwin: 8.6 cm/sec MV A max sherwin: 74.4 cm/sec E/E' lat: 10.3 E/E' med: 12.5 MV E/A: 1.4 Ao V2 max: 170.7 cm/sec LV V1 max: 134.8 cm/sec PA V2 max: 107.7 cm/sec Ao max P.7 mmHg LV V1 max P.3 mmHg TR max sherwin: 315.3 cm/sec TR max P.8 mmHg Interpretation Summary Left ventricular systolic function is normal. The estimated ejection fraction is 65 %. The left atrium is mildly enlarged. The mitral valve chordae are thickened and/or calcified. Trivial mitral valve insufficiency. Trivial tricuspid valve insufficiency. Trivial pulmonic valve insufficiency. Right ventricular systolic pressure estimated to be 43 mmHg. No evidence for diastolic dysfunction. Ordering Physician: Jenny James Referring Physician: Jenny James Performed By: Gabriela Babin, RDCS, RVT 12/12/18 1628 Date Vahid Mckeon MD CC: Jenny James DO Date Dictated: 12/12/18 1354 Date Transcribed: 12/12/181627 Housefellow: Signed CHEST PA AND LATERAL Observed: 12/08/2018 Status: F Source: [place] 11:37 AM [facility] REPOSITORY [facility] Imaging Services [address] [place] [address] Chest PA and Lateral MR#: [id number] Acct: [id number] Name: MONIE CARLSON Raine Rep #: [id number] : 1955 F 63 From: Shubham Mario PCP: Jenny James DO Status: REG CLI Study: Chest PA and Lateral Date of Exam: 12/08/18 Exam# [id number] Ordering Dr: Jenny James DO STUDY: X-RAY CHEST REASON FOR EXAM: Female, 63 years old. Cough for 2 months. TECHNIQUE: PA and lateral chest. COMPARISON: January 09, 2015. FINDINGS: The lungs are clear and expanded. There is no demonstrated pleural abnormality. Normal size heart. Normal mediastinum and josé luis. Normal visualized pulmonary arteries. Normal visualized aortic arch and descending thoracic aorta. Normal visualized thoracic spine. Normal visualized ribs, clavicles, and shoulders. There is no demonstrated abnormality of the visualized soft tissue structures of the upper abdomen. RAD/Chest PA and Lateral IMPRESSION: No acute cardiopulmonary disease. Electronically Signed: Shubham Mario MD at 2:44 EST , Service support , CC: Jenny James DO Housefellow: Signed PROGRESS Observed: 11/12/2018 Status: COMPLETED Source: [place] 5:57 PM [facility] REPOSITORY HNO ID: [id number] Author: Mey (Bijan) Geovani Service: (none) Author Type: Nurse Practitioner Type: Progress Notes Filed: 11/12/2018 7:49 PM Note Text: Subjective The history is provided by the patient. No high school foreign language tutor was used. HPI Monie Carlson is a 63 year old female who presents today for CC of cough she has had for a month. She is also had a productive cough, white phlegm, nasal congestion, post nasal drainage. She has tried whisky without relief and alkaseltzer plus No history of any lumg disorder or pneumonia. BP 150/86 Pulse 70 Temp 36.9 ?C (98.4 ?F) (Tympanic) Resp 16 Wt 113.4 kg (250 lb) SpO2 97% No past medical history on file. I have confirmed and edited as necessary, the [facility] Review of Systems Constitutional: Negative for chills and fever. HENT: Positive for congestion and sinus pain. Negative for ear pain and sore throat. Post nasal drainage Respiratory: Positive for cough, sputum production and shortness of breath. Negative for wheezing. Musculoskeletal: Negative for myalgias. Neurological: Negative for headaches. Objective Physical Exam Constitutional: She is well-developed, well-nourished, and in no distress. HENT: Head: Normocephalic and atraumatic. Right Ear: External ear and ear canal normal. Tympanic membrane is bulging. A middle ear effusion (serous) is present. Left Ear: Ear canal normal. Tympanic membrane is bulging. A middle ear effusion (serous) is present. Nose: Mucosal edema and rhinorrhea present. Right sinus exhibits maxillary sinus tenderness and frontal sinus tenderness. Left sinus exhibits maxillary sinus tenderness and frontal sinus tenderness. Mouth/Throat: Uvula is midline and mucous membranes are normal. Posterior oropharyngeal erythema (mild, thin clear post nasal drainage) present. Cardiovascular: Normal rate, regular rhythm and normal heart sounds. Pulmonary/Chest: Effort normal and breath sounds normal. She has no decreased breath sounds. She has no wheezes. She has no rhonchi. She has no rales. Lymphadenopathy: Head (right side): No submental, no submandibular and no tonsillar adenopathy present. Head (left side): No submental, no submandibular and no tonsillar adenopathy present. She has no cervical adenopathy. Right cervical: No superficial cervical adenopathy present. Left cervical: No superficial cervical adenopathy present. Neurological: She is alert. Skin: Skin is warm and dry. Psychiatric: Affect normal. Nursing note and vitals reviewed. ASSESSMENT/PLAN: 1. Sinobronchitis - ICD9: 473.9, 490, ICD10: J32.9, J40 - Will begin treatment with Doxycline - 1 capsule twice a day for 10 days Rest, increase water intake Motrin or Tylenol as needed for fever or pain. Salt water gargles, chloraseptic spray or lozenges as needed for sore throat. Nasal saline spray as needed Cool mist humidifier at night - Follow up in one week if symptoms persist or worsen. Tylenol (generic acetaminophen) 500 mg-2 tabs every 8 hrs. as needed for fever and aches Ibuprofen 600 mg (3-200mg tablets) every 6 hours Tessalon Perles as prescribed for coughing, do not combine this with other cough and cold medications * Seek medical care immediately, call 911, go to ER if you have chest pain, difficulty breathing, shortness of breath, inability to swallow. Diagnosis and treatment plan were discussed and questions were answered to the patient's satisfaction. Pt acknowledged understanding of concepts and follow up plan. Specific signs and symptoms that would indicate the need for higher level of care were discussed in detail warranting prompt ER evaluation. Mey Olivo APRN.BIJAN VOGEL Observed: 11/12/2018 Status: COMPLETED Source: [place] 5:45 PM [facility] REPOSITORY Office Visit ([facility]) MONIE CARLSON ([id number]) 1955 F Date Time Provider Department 11/12/18 5:45 PM MEY OLIVO (PHARMACY INNOVATION ASSISTANT) [facility] During your visit today, we recorded the following information about you: Temperature Pulse Respiration Blood pressure 98.4 degrees 70/minute 16/minute 150/86 Weight 113.4 kg Mey Olivo APRN.CNP 11/12/2018 7:49 PM Signed Subjective The history is provided by the patient. No high school foreign language tutor was used. HPI Monie Carlson is a 63 year old female who presents today for CC of cough she has had for a month. She is also had a productive cough, white phlegm, nasal congestion, post nasal drainage. She has tried whisky without relief and alkaseltzer plus No history of any lumg disorder or pneumonia. BP 150/86 Pulse 70 Temp 36.9 ?C (98.4 ?F) (Tympanic) Resp 16 Wt 113.4 kg (250 lb) SpO2 97% No past medical history on file. I have confirmed and edited as necessary, the [facility] Review of Systems Constitutional: Negative for chills and fever. HENT: Positive for congestion and sinus pain. Negative for ear pain and sore throat. Post nasal drainage Respiratory: Positive for cough, sputum production and shortness of breath. Negative for wheezing. Musculoskeletal: Negative for myalgias. Neurological: Negative for headaches. Objective Physical Exam Constitutional: She is well-developed, well-nourished, and in no distress. HENT: Head: Normocephalic and atraumatic. Right Ear: External ear and ear canal normal. Tympanic membrane is bulging. A middle ear effusion (serous) is present. Left Ear: Ear canal normal. Tympanic membrane is bulging. A middle ear effusion (serous) is present. Nose: Mucosal edema and rhinorrhea present. Right sinus exhibits maxillary sinus tenderness and frontal sinus tenderness. Left sinus exhibits maxillary sinus tenderness and frontal sinus tenderness. Mouth/Throat: Uvula is midline and mucous membranes are normal. Posterior oropharyngeal erythema (mild, thin clear post nasal drainage) present. Cardiovascular: Normal rate, regular rhythm and normal heart sounds. Pulmonary/Chest: Effort normal and breath sounds normal. She has no decreased breath sounds. She has no wheezes. She has no rhonchi. She has no rales. Lymphadenopathy: Head (right side): No submental, no submandibular and no tonsillar adenopathy present. Head (left side): No submental, no submandibular and no tonsillar adenopathy present. She has no cervical adenopathy. Right cervical: No superficial cervical adenopathy present. Left cervical: No superficial cervical adenopathy present. Neurological: She is alert. Skin: Skin is warm and dry. Psychiatric: Affect normal. Nursing note and vitals reviewed. ASSESSMENT/PLAN: 1. Sinobronchitis - ICD9: 473.9, 490, ICD10: J32.9, J40 - Will begin treatment with Doxycline - 1 capsule twice a day for 10 days Rest, increase water intake Motrin or Tylenol as needed for fever or pain. Salt water gargles, chloraseptic spray or lozenges as needed for sore throat. Nasal saline spray as needed Cool mist humidifier at night - Follow up in one week if symptoms persist or worsen. Tylenol (generic acetaminophen) 500 mg-2 tabs every 8 hrs. as needed for fever and aches Ibuprofen 600 mg (3-200mg tablets) every 6 hours Tessalon Perles as prescribed for coughing, do not combine this with other cough and cold medications * Seek medical care immediately, call 911, go to ER if you have chest pain, difficulty breathing, shortness of breath, inability to swallow. Diagnosis and treatment plan were discussed and questions were answered to the patient's satisfaction. Pt acknowledged understanding of concepts and follow up plan. Specific signs and symptoms that would indicate the need for higher level of care were discussed in detail warranting prompt ER evaluation. Mey Olivo APRN.BIJAN Olivo APRN.BIJAN 11/12/2018 6:07 PM Signed ASSESSMENT/PLAN: 1. Sinobronchitis - ICD9: 473.9, 490, ICD10: J32.9, J40 - Will begin treatment with Doxycline - 1 capsule twice a day for 10 days Rest, increase water intake Motrin or Tylenol as needed for fever or pain. Salt water gargles, chloraseptic spray or lozenges as needed for sore throat. Nasal saline spray as needed Cool mist humidifier at night - Follow up in one week if symptoms persist or worsen. Tylenol (generic acetaminophen) 500 mg-2 tabs every 8 hrs. as needed for fever and aches Ibuprofen 600 mg (3-200mg tablets) every 6 hours Tessalon Perles as prescribed for coughing, do not combine this with other cough and cold medications * Seek medical care immediately, call 911, go to ER if you have chest pain, difficulty breathing, shortness of breath, inability to swallow. Referring Provider: SELF [200] Allergies As of Date: 11/12/2018 (No Known Allergies) Date Reviewed: 11/12/2018 Reviewed by: Mey ([facility]) Geovani - Fully Assessed Reason for Visit: Cough [28] Cmt: x 1 month Primary Visit Diagnosis:Sinobronchitis [J32.9, J40] Order(s):doxycycline monohydrate (MONODOX) 100 mg capsuleTake 1 capsule by mouth twice daily for 10 days.Disp: 20 capsuleRfl: 0 Benzonatate 200 mg capsuleTake 1 capsule by mouth three times daily as needed.Disp: 30 capsuleRfl: 0 Prescriptions as of 11/12/2018 Sig: METOPROLOL TARTRATE 25 MG TAB* Take 25 mg by mouth twice mena* BENZONATATE 200 MG CAPSULE Take 1 capsule by mouth three* DOXYCYCLINE MONOHYDRATE 100 M* Take 1 capsule by mouth twice* Problem List As Of Date: 11/12/2018 (None) Other instructions from your clinician: ASSESSMENT/PLAN: 1. Sinobronchitis - ICD9: 473.9, 490, ICD10: J32.9, J40 - Will begin treatment with Doxycline - 1 capsule twice a day for 10 days Rest, increase water intake Motrin or Tylenol as needed for fever or pain. Salt water gargles, chloraseptic spray or lozenges as needed for sore throat. Nasal saline spray as needed Cool mist humidifier at night - Follow up in one week if symptoms persist or worsen. Tylenol (generic acetaminophen) 500 mg-2 tabs every 8 hrs. as needed for fever and aches Ibuprofen 600 mg (3-200mg tablets) every 6 hours Tessalon Perles as prescribed for coughing, do not combine this with other cough and cold medications * Seek medical care immediately, call 911, go to ER if you have chest pain, difficulty breathing, shortness of breath, inability to swallow. Prescriptions ordered this encounter Disp Refills Start End DOXYCYCLINE MONOHYDRATE 100 MG CAPSU* 20 c* 0 11/12/2018 11/22/2018 Route: ORAL Sig: Take 1 capsule by mouth twice daily for 10 days. BENZONATATE 200 MG CAPSULE 30 c* 0 11/12/2018 Route: ORAL Sig: Take 1 capsule by mouth three times daily as needed. Encounter Status:Closed by MEY OLIVO CNP on 11/12/18 ALLERGIES ALLERGIES DATE TYPE / CODE NAME / CODE REACTION SEVERITY SOURCE 01/09/2015 Drug No Known Unknown [facility] Allergy/4160 Allergies/F00 [facility] 93020(SNOMED [id number](RXNOR Repository CT) M) ENCOUNTERS ENCOUNTERS ADMIT/DISCHARGE ACCOUNT ADMITTING ENCOUNTER LOCATION SOURCE NUMBER CLASS 12/12/2018 [id number] [facility] ing:[facility] Repository 12/08/2018 [id number] [facility] ing:[facility] Repository 12/08/2018 [id number] Ambulatory Building:[facility] Practices Repository 11/12/2018/11/13/20 [id number] Ambulatory [address] Repository PAYERS PAYERS ENCOUNTER GUARANTOR PAYER SUBSCRIBER SOURCE 12/12/2018 MONIE Ni Primary MONIE Humphrey [id number] E Insurance:JHONATHAN VÁZQUEZ: [facility] Number: [id number] [id number] Repository [place], [place] Date:[id number] [address] [address]Byz: [phone] [id number], [place] [phone] (NO) [phone]: 12/12/2018 [facility]SELF [facility] Number: Effective Repository Date:2018-12-08 12/08/2018 MONIE Ni Primary MONIE Humphrey [id number] E Insurance:JHONATHAN VÁZQUEZ: [facility] Number: [id number] [facility] [id number] Repository [address] Date:2972-45-60ZD [address] [address]Gxa: [phone], [place] [phone] (HP) [phone]: 12/08/2018 Secondary NOT GIVENUNK Milagro Insurance:SELF PAY [facility] Number: Effective Repository Date:2018-12-08 12/08/2018 Monie L Primary Monie L OHIP Practices KlingermanDOB: Insurance:Alannaain KlingermanDOB: Repository [id number] [facility] Number: [id number] [address] [id number] [address] [facility] [place] Date:[id number] [facility] CenterOskaranastasiaGREENVILLE [place], [place] Name:FP. Chayo Myers [facility] HospitalanastasiaGREENVILLE [place], [place] [address]Kle: [phone], [place] [address]Wrd: [phone]: (HP) (HP) [phone] (WP) 12/08/2018 Secondary Monie L OHIP Practices Insurance:Damir VaughanmanDOB: Repository licy Number: [id number] Effective Date: - [address] [id number] Name:[facility] [place] [address]Xtl: ~(3 30 (HP) 12/08/2018 Tertiary Monie L OHIP Practices Insurance:AETNAStephanie KlingermanDOB: Repository Number: [id number] 2 [facility] Date: - Nazlini [id number] Ariasanastasia [place] Name:DAJUAN MYERS [id number]: INES MCCANN [id number]: ~( 30 (HP) 12/08/2018 Tertiary Monie L OHIP Practices Insurance:Alf VaughanmanDOB: Repository BC/BSPolicy Number: [id number] [address] Date:2017-11-186008-45-10Yyls [place] Name:CARMINESarwat Myers [address]Erb: [id number], [place] ~(3 [phone]: [phone]
== END ==
PROVIDERS: Family Provider Internal Medicine; PCP Internal Medicine; Referring Provider Internal Medicine; Visit Provider Internal Medicine
DX: R05 Cough (principal)
CPT/HCPCS: 71046

== ENCOUNTER → 2018-12-12 13:34 | Outpatient (CLI) | payer OTHER, SELFPAY ==
--- NOTE | 2018-12-12 13:39 | ECHOD_ITS ---
Reason For Study: PHTN Procedure This was a 2D Doppler, Color Flow transthoracic echocardiogram. The study was technically difficult. Exam performed in department. Left Ventricle Normal LV size. Left ventricular systolic function is normal. The estimated ejection fraction is 65 %. No evidence for diastolic dysfunction. No regional wall motion abnormalities noted. Right Ventricle Normal RV size. Normal systolic function. Atria The left atrium is mildly enlarged. Normal right atrium. No doppler evidence for ASD. Mitral Valve There is no mitral annular calcification. Normal mitral valve. The mitral valve chordae are thickened and/or calcified. Trivial mitral valve insufficiency. Tricuspid Valve Normal tricuspid valve. Trivial tricuspid valve insufficiency. Right ventricular systolic pressure estimated to be 43 mmHg. Aortic Valve Trisinus/trileaflet aortic valve. Normal aortic valve. Pulmonic Valve The pulmonic valve is not well visualized. Trivial pulmonic valve insufficiency. Great Vessels Normal sized aortic root. Pericardium/Pleural No pericardial effusion. MMode/2D Measurements & Calculations LVIDd: 4.0 cm IVSd: 1.1 cm Ao root diam: 3.8 cm LVIDs: 2.2 cm LVPWd: 1.1 cm RVDd: 3.6 cm FS: 46.3 % LAV(MOD-bp): 56.0 ml EDV(MOD-sp4): 105.1 ml EDV(MOD-sp2): 95.0 ml LAV(MOD-bp) Indexed: 26.0 ml/m2 ESV(MOD-sp4): 26.6 ml EF(MOD-sp2): 68.3 % LAV(MOD-sp2): 59.0 ml EF(MOD-sp4): 74.7 % LAV(MOD-sp4): 54.2 ml SV(MOD-sp4): 78.5 ml SV(MOD-sp2): 64.8 ml LA A4 area: 19.5 cm2 LA dimension(2D): 4.3 cm RA A4 area: 17.4 cm2 Time Measurements MV dec time: 0.23 sec Doppler Measurements & Calculations MV E max sherwin: 106.9 cm/sec Lat Peak E' Sherwin: 10.4 cm/sec Med Peak E' Sherwin: 8.6 cm/sec MV A max sherwin: 74.4 cm/sec E/E' lat: 10.3 E/E' med: 12.5 MV E/A: 1.4 Ao V2 max: 170.7 cm/sec LV V1 max: 134.8 cm/sec PA V2 max: 107.7 cm/sec Ao max P.7 mmHg LV V1 max P.3 mmHg TR max sherwin: 315.3 cm/sec TR max P.8 mmHg Interpretation Summary Left ventricular systolic function is normal. The estimated ejection fraction is 65 %. The left atrium is mildly enlarged. The mitral valve chordae are thickened and/or calcified. Trivial mitral valve insufficiency. Trivial tricuspid valve insufficiency. Trivial pulmonic valve insufficiency. Right ventricular systolic pressure estimated to be 43 mmHg. No evidence for diastolic dysfunction. Ordering Physician: Jenny James Referring Physician: Jenny James Performed By: Gabriela Babin, JW, RVT
== END ==
PROVIDERS: Family Provider Internal Medicine; PCP Internal Medicine; Referring Provider Internal Medicine; Visit Provider Internal Medicine
DX: I27.20 Pulmonary hypertension, unspecified (principal)
CPT/HCPCS: 93306

== ENCOUNTER 2021-01-24 13:13 | Outpatient (RCR) | payer OTHER, BC, SELFPAY ==
[2021-01-24] MEDS: COVID-19 VACC, MRNA(PFIZER)/PF 30 MCG/0.3 ML SYRINGE IM (15:59)
[2021-02-14] MEDS: COVID-19 VACC, MRNA(PFIZER)/PF 30 MCG/0.3 ML SYRINGE IM (15:54)
== END 2021-04-25 23:59 ==
LOC: IMMUN 13:13
PROVIDERS: PCP Internal Medicine; Visit Provider Family Medicine
DX: Z23 Encounter for immunization (principal)
CPT/HCPCS: 0001A; 0002A; 91300

== ENCOUNTER 2022-02-21 10:25 | Outpatient (CLI) | payer BC, SELFPAY ==
[2022-02-21 12:09] LABS: Absolute Lymphocyte Count 2.15 X10^3/uL (0.83-4.51); Absolute Neutrophil Count 4.5 X10^3/uL (2.0-7.7); Basophil# 0.06 X10^3/uL; Basophil% 0.8 % (0-1); Eosinophil# 0.25 X10^3/uL; Eosinophils% 3.4 % (0-5); Hematocrit 41.8 % (37-47); Hemoglobin 12.9 g/dL (12.0-15.0); Lymphocyte # 2.15 X10^3/ul (0.83-4.51); Lymphocyte % 28.9 % (19-41); Mean Corp Hgb Conc 30.9 g/dL (32-36); Mean Corpuscular Hgb 29.3 pg (27.0-32.0); Mean Corpuscular Volume 94.8 fL (81-99); Monocyte# 0.49 X10^3/uL; Monocyte% 6.6 % (0-10); NRBC Flagged by Analyzer 0 % (0-5); Neutrophil # 4.46 X10^3/uL (2.7-7.7); Neutrophil % 59.9 % (47-70); Platelet Count 261 K/mm3 (150-450); RBC Distribution Width CV 14.1 % (11.6-14.6); Red Blood Count 4.41 M/mm3 (4.2-5.4); White Blood Count 7.4 K/mm3 (4.4-11.0)
[2022-02-21 12:26] LABS: Vitamin D,25 Hydroxy 41.4 ng/mL
[2022-02-21 12:31] LABS: Hemoglobin A1c 5.7 % (3.8-5.6)
[2022-02-21 12:37] LABS: ALB/GLOB Ratio 0.9 RATIO (0.9-2.4); AST(SGOT) 20 U/L (15-37); Alanine Aminotransfer ALT/SGPT 35 U/L (13-56); Albumin, Serum 3.8 g/dL (3.2-5.0); Alkaline Phosphatase 96 U/L (45-117); Anion Gap 1 (5-15); BUN 17 mg/dL (7-18); BUN/Creat Ratio 24.5 RATIO (10-20); Calcium,Total 9.3 mg/dL (8.5-10.1); Chloride 104 mmol/L (98-107); Cholesterol 232 mg/dL (200); Creatinine, Serum 0.69 mg/dL (0.55-1.02); EST Glomerular Filtration Rate 90 mL/min (>60); Est Glom Filt Rate - Afr Amer 109 mL/min (>60); Free T3 2.2 pg/mL (2.18-3.98); Globulin 4.2 g/dL (2.2-4.2); Glucose 87 mg/dL (74-106); High Density Lipoprotein 35 mg/dL; Potassium 4.7 mmol/L (3.5-5.1); Sodium Level 138 mmol/L (136-145); Thyroid Stim Hormone (TSH) 3.75 uIU/mL (0.358-3.74); Triglycerides 295 mg/dL; Very Low Density Lipoprotein 59 mg/dL (5-40)
== END 2022-02-21 23:59 | disposition home or self-care (01) ==
LOC: BIMLAB 10:26
PROVIDERS: PCP Internal Medicine; Referring Provider Internal Medicine; Visit Provider Internal Medicine
DX: E55.9 Vitamin D deficiency, unspecified (principal); I10 Essential (primary) hypertension; E66.9 Obesity, unspecified; Z13.1 Encounter for screening for diabetes mellitus; Z13.220 Encounter for screening for lipoid disorders
CPT/HCPCS: 36415; 80053; 80061; 82306; 83036; 84439; 84443; 84481; 85025

== ENCOUNTER → 2022-03-23 | Outpatient (CLI) | payer MEDICARE, SELFPAY ==
--- NOTE | 2022-03-23 12:42 | BI_ITS ---
MAMMOGRAPHY - BILATERAL SCREENING REASON FOR EXAM: Female, 66 years old. Routine annual screening examination. PERTINENT HISTORY: Sister with breast cancer. TECHNIQUE: Digital bilateral breast kristel (3D mammographic acquisition) in the CC and MLO projections. 2-D mediolateral oblique (MLO) and craniocaudad (CC) views of both breasts were obtained. CAD: Full Field Digital Mammography with Computer Added Detection was performed. COMPARISON: Comparison is made with prior study dated 01/27/2015 and 02/14/2017. FINDINGS: Breast Composition: The breasts are almost entirely fatty. There are no dominant masses or suspicious calcifications. Stable calcifications in the slightly upper lateral aspect of the right breast. No other significant abnormalities are identified. There has been no significant change since the prior study. BI/SCRN MAMM (CAD)W/KRISTEL BILAT IMPRESSION: Stable bilateral screening mammogram. Yearly follow-up mammogram recommended. (A) ASSESSMENT CATEGORY: BIRADS Category 2: Benign. A letter regarding these results will be sent to the patient by the facility within 30 days. Approximately 10% of breast cancers are not detected by mammography. A normal mammogram should not delay biopsy of a clinically suspicious abnormality. [id number] Electronically Signed: Ramón Hua MD at 13:38 EDT ,
== END | disposition home or self-care (01) ==
LOC: OPBI 12:41
PROVIDERS: PCP Internal Medicine; Referring Provider Internal Medicine; Visit Provider Internal Medicine
DX: Z12.31 Encounter for screening mammogram for malignant neoplasm of breast (principal); Z80.3 Family history of malignant neoplasm of breast
CPT/HCPCS: 77063; 77067

== ENCOUNTER 2022-06-08 07:59 | Day surgery (SDC) | payer MEDICARE, SELFPAY ==
[2022-06-08] VITALS (8 sets, daily range): BP systolic 106–148; BP diastolic 49–97; PULSE 58–82; RESP 16; TEMP 36.3–36.6; O2SAT 92–97; BMI 44.8
--- NOTE | 2022-06-08 08:21 | PCM.HP.STD ---
[facility] - General General Date of Service: 06/08/22 Chief Complaint: Screening for intestinal cancer [facility] Narrative MONIE CARLSON, is a 66 F who presents for screening colonoscopy. She thinks she had a colonoscopy about 15 years prior. She claims that recently her sister had colon cancer. The patient denies bright red blood per rectum or melena. She presents via open access [facility] Medical History (Updated 06/05/22 @ 12:00 by Christelel Catalan) Arthritis Carpal tunnel syndrome History of echocardiogram Hypertension Non-smoker Post-menopausal Shortness of breath on exertion Wears glasses Home Medications vitamins A,C,L-mxnl-lfczio 14,320 unit-226 mg-200 unit capsule (PreserVision AREDS) 1 ea PO BID 01/09/15 [History Last Taken Unknown] metoprolol tartrate 25 mg tablet 12.5 mg PO BID 02/15/22 [History Last Taken Unknown] ascorbate calcium (vitamin C) 500 mg tablet 500 mg PO DAILY 02/21/22 [History Last Taken Unknown] cholecalciferol (vitamin D3) 50 mcg (2,000 unit) capsule 1,000 mcg PO DAILY 02/21/22 [History Last Taken Unknown] lutein 40 mg capsule 40 mg PO DAILY 06/05/22 [History Last Taken Unknown] Allergy/AdvReac Type Severity Reaction Status Date / Time No Known Allergies Allergy Verified 06/05/22 11:51 Family History Sister Colon cancer Grandmother Colon cancer Other Breast cancer Cancer Diabetes Hypertension Surgical History H/O lateral meniscus repair of left knee History of carpal tunnel release Social History Smoking Status: Never smoker alcohol intake: current alcohol intake frequency: a few times a month Alcohol type: beer and wine substance use type: does not use what type of physical activity do you participate in: none ROS Constitutional Constitutional: Reports systems reviewed and no addt'l complaints, except as documented Cardiovascular Cardiovascular: Denies chest pain Respiratory/Chest Respiratory/Chest: Denies shortness of breath at rest Gastrointestinal Gastrointestinal: Denies abdominal pain, change in bowel habits, hematochezia or melena Physical Exam Const alert, oriented x3 and no apparent distress General Appearance: cooperative and comfortable Eyes General Eye: normal appearance of both eyes Neck General: normal visual inspection Chest inspection of chest normal Resp Effort and Inspection: able to speak in complete sentences and symmetric chest movement Auscultation: clear to auscultation bilaterally Cardio regular rate and regular rhythm GI soft to palpation, non-tender and non-distended Extremity no calf tenderness Neuro oriented x3 Psych thought process normal Assessment & Plan Assessment/Plan (1) Encounter for screening for malignant neoplasm of colon: PLAN: The patient presents via open access to proceed with a colonoscopy with possible biopsy or polypectomy as indicated. She is aware of technique, benefit, risk, alternatives. She has had an opportunity to ask and have questions answered. We will proceed as noted. Miller Willingham M.D., F.A.C.S.
[2022-06-08] MEDS: Lactated Ringers 1,000 ML 15 ML IV (08:35)
--- NOTE | 2022-06-08 10:26 | OP.CCLET_ITS ---
06/08/2022 Ora Mina [facility] [address] [place] [address] Re : Colonoscopy procedure for Arabella Demarco Dear Dr. Mina This procedure was performed on Wednesday, June 08, 2022. My impressions and recommendations are as follows: Impressions : - Hemorrhoids found on perianal exam. - Stool in the entire examined colon. This precluded evaluation of the distal transverse and descending/sigmoid colon. - No specimens collected. Recommendations : - Discharge patient to home. - Resume previous diet. - Continue present medications. - Repeat colonoscopy in 1 year for surveillance or sooner because of inadequate prep Pt developed respiratory distress under MAC. Would need preop evaluation-possible evaulation for sleep apnea/airway obstruction My findings are described in the full procedure note, which is enclosed. If I can be of further assistance, please feel free to contact me at Doctor phone number(s): Work: . Sincerely, Miller Willingham MD 06/08/2022 10:25:34 AM This report has been signed electronically.
--- NOTE | 2022-06-08 10:26 | OP.COLON_ITS ---
Patient Name: Arabella Demarco Procedure Date: 06/08/2022 9:50 AM Date of : 1955 Age: 66 Procedure: Colonoscopy Indications: Screening in patient at increased risk: Family history of 1st-degree relative with colorectal cancer Providers: Miller Willingham MD Medicines: See the Anesthesia note for documentation of the administered medications Patient Profile: Last Colonoscopy: more than 10 years ago. Complications: No immediate complications. Procedure: Pre-Anesthesia Assessment: - Prior to the procedure, a History and Physical was performed, and patient medications and allergies were reviewed. The patient's tolerance of previous anesthesia was also reviewed. The risks and benefits of the procedure and the sedation options and risks were discussed with the patient. All questions were answered, and informed consent was obtained. Prior Anticoagulants: The patient has taken no previous anticoagulant or antiplatelet agents. ASA Grade Assessment: III - A patient with severe systemic disease. After reviewing the risks and benefits, the patient was deemed in satisfactory condition to undergo the procedure. After I obtained informed consent, the scope was passed under direct vision. Throughout the procedure, the patient's blood pressure, pulse, and oxygen saturations were monitored continuously. The adult colonoscope was introduced through the anus and advanced to the cecum, identified by appendiceal orifice and ileocecal valve. The colonoscopy was performed with moderate difficulty due to inadequate bowel prep. The ileocecal valve and the appendiceal orifice were photographed. Scope In: 9:59:01 AM Scope Withdrawal Time 0 hours 11 minutes 0 seconds Scope Out: 10:18:47 AM Total Procedure Duration Time 0 hours 19 minutes 46 seconds Findings: Hemorrhoids were found on perianal exam. A moderate amount of stool was found in the entire colon, precluding visualization. Impression: - Hemorrhoids found on perianal exam. - Stool in the entire examined colon. This precluded evaluation of the distal transverse and descending/sigmoid colon. - No specimens collected. Recommendation: - Discharge patient to home. - Resume previous diet. - Continue present medications. - Repeat colonoscopy in 1 year for surveillance or sooner because of inadequate prep Pt developed respiratory distress under MAC. Would need preop evaluation-possible evaulation for sleep apnea/airway obstruction Procedure Code(s): --- Professional --- 72406, Colonoscopy, flexible; diagnostic, including collection of specimen(s) by brushing or washing, when performed (separate procedure) Diagnosis Code(s): --- Professional --- Z80.0, Family history of malignant neoplasm of digestive organs K64.9, Unspecified hemorrhoids CPT copyright 2017 [employer]. All rights reserved. The codes documented in this report are preliminary and upon digital field service technician review may be revised to meet current compliance requirements. Miller Willingham MD 06/08/2022 10:25:34 AM This report has been signed electronically. Number of Addenda: 0 Note Initiated On: 06/08/2022 9:50 AM
== END 2022-06-08 11:41 | disposition home or self-care (01) ==
LOC: EN 07:59 → AC 08:00
PROVIDERS: PCP Internal Medicine; Referring Provider Internal Medicine; Visit Provider Surgery
PROC: 0DJD8ZZ Inspection of Lower Intestinal Tract, Via Natural or Artificial Opening Endoscopic (ICD-10-PCS; CPT 45378; principal; 2022-06-08 09:10)
DX: Z12.11 Encounter for screening for malignant neoplasm of colon (principal); K64.9 Unspecified hemorrhoids; I10 Essential (primary) hypertension; E55.9 Vitamin D deficiency, unspecified; Z79.899 Other long term (current) drug therapy; Z80.0 Family history of malignant neoplasm of digestive organs
CPT/HCPCS: 45378; J7120; J2405

== ENCOUNTER → 2022-11-07 | Outpatient (CLI) | payer MEDICARE, SELFPAY | END | disposition home or self-care (01) | PROVIDERS: PCP Internal Medicine; Visit Provider Internal Medicine | DX: G47.30 Sleep apnea, unspecified (principal) | CPT/HCPCS: 95806 ==

== ENCOUNTER → 2023-02-05 | Outpatient (CLI) | payer MEDICARE, SELFPAY | END | disposition home or self-care (01) | LOC: SL 14:13 | PROVIDERS: PCP Internal Medicine; Visit Provider Internal Medicine | DX: Z46.89 Encounter for fitting and adjustment of other specified devices (principal) ==

== ENCOUNTER → 2023-04-08 | Outpatient (CLI) | payer MEDICARE, SELFPAY ==
--- NOTE | 2023-04-08 14:32 | BI_ITS ---
MAMMOGRAPHY - BILATERAL SCREENING REASON FOR EXAM: Female, 67 years old. Routine annual screening examination. PERTINENT HISTORY: Sister with breast cancer. Needle biopsy in 2001 TECHNIQUE: Digital bilateral breast kristel (3D mammographic acquisition) in the CC and MLO projections. 2-D mediolateral oblique (MLO) and craniocaudad (CC) views of both breasts were obtained. CAD: Full Field Digital Mammography with Computer Added Detection was performed. COMPARISON: Mammogram from 03/23/2022, 03/17/2017. FINDINGS: Breast Composition: The breasts are heterogeneously dense, which may obscure small masses. There are no dominant masses or suspicious calcifications. Stable benign-appearing calcifications in the right breast. No other significant abnormalities are identified. There has been no significant change since the prior study. BI/SCRN MAMM (CAD)W/KRISTEL BILAT IMPRESSION: Stable bilateral screening mammogram. Yearly follow-up mammogram recommended. (A) ASSESSMENT CATEGORY: BIRADS Category 2: Benign. A letter regarding these results will be sent to the patient by the facility within 30 days. Approximately 10% of breast cancers are not detected by mammography. A normal mammogram should not delay biopsy of a clinically suspicious abnormality. Electronically Signed: Melquiades Horta MD at 17:07 EDT ,
== END | disposition home or self-care (01) ==
LOC: OPBI 14:31
PROVIDERS: PCP Internal Medicine; Referring Provider Internal Medicine; Visit Provider Internal Medicine
DX: Z12.31 Encounter for screening mammogram for malignant neoplasm of breast (principal); Z80.3 Family history of malignant neoplasm of breast
CPT/HCPCS: 77063; 77067

== ENCOUNTER → 2023-04-24 | Outpatient (CLI) | payer MEDICARE, SELFPAY ==
[2023-04-24 13:45] LABS: Absolute Lymphocyte Count 2.29 X10^3/uL (0.83-4.51); Absolute Neutrophil Count 5.4 X10^3/uL (2.0-7.7); Basophil# 0.09 X10^3/uL; Basophil% 1.1 % (0-1); Eosinophil# 0.29 X10^3/uL; Eosinophils% 3.4 % (0-5); Hematocrit 37.9 % (37-47); Lymphocyte # 2.29 X10^3/ul (0.83-4.51); Lymphocyte % 26.8 % (19-41); Mean Corp Hgb Conc 31.7 g/dL (32-36); Mean Corpuscular Hgb 29.3 pg (27.0-32.0); Mean Corpuscular Volume 92.7 fL (81-99); Mean Platelet Vol. 9.9 fl (6.2-12.0); Monocyte# 0.47 X10^3/uL; Monocyte% 5.5 % (0-10); NRBC Flagged by Analyzer 0 % (0-5); Neutrophil # 5.39 X10^3/uL (2.7-7.7); Neutrophil % 62.8 % (47-70); Platelet Count 213 K/mm3 (150-450); RBC Distribution Width CV 14.3 % (11.6-14.6); RBC Distribution Width SD 48.1 fl (35.1-43.9); Red Blood Count 4.09 M/mm3 (4.2-5.4); White Blood Count 8.6 K/mm3 (4.4-11.0)
[2023-04-24 14:36] LABS: AST(SGOT) 25 U/L (15-37); Alanine Aminotransfer ALT/SGPT 27 U/L (13-56); Albumin, Serum 3.7 g/dL (3.2-5.0); Alkaline Phosphatase 92 U/L (45-117); Anion Gap 6 (5-15); BUN 14 mg/dL (7-18); Calcium,Total 8.9 mg/dL (8.5-10.1); Chloride 106 mmol/L (98-107); Cholesterol 184 mg/dL (200); Creatinine, Serum 0.67 mg/dL (0.55-1.02); EST Glomerular Filtration Rate 94 mL/min (>60); Est Glom Filt Rate - Afr Amer 113 mL/min (>60); Free T3 2.2 pg/mL (2.18-3.98); Globulin 3.7 g/dL (2.2-4.2); Glucose 79 mg/dL (74-106); High Density Lipoprotein 34 mg/dL; Potassium 3.8 mmol/L (3.5-5.1); Protein, Total 7.4 g/dL (6.4-8.2); Sodium Level 138 mmol/L (136-145); T4 Free Direct 0.82 ng/dL (0.76-1.46); Triglycerides 114 mg/dL; Very Low Density Lipoprotein 23 mg/dL (5-40)
[2023-04-24 15:45] LABS: Hemoglobin A1c 5.6 % (3.8-5.6)
== END | disposition home or self-care (01) ==
LOC: LAB 12:57
PROVIDERS: PCP Internal Medicine; Referring Provider Internal Medicine; Visit Provider Internal Medicine
DX: I10 Essential (primary) hypertension (principal); E78.1 Pure hyperglyceridemia; E55.9 Vitamin D deficiency, unspecified; R73.09 Other abnormal glucose
CPT/HCPCS: 36415; 80053; 80061; 83036; 84439; 84443; 84481; 85025

== ENCOUNTER → 2024-03-23 | Outpatient (CLI) | payer MEDICARE, SELFPAY ==
[2024-03-23 14:28] LABS: Absolute Lymphocyte Count 2.09 X10^3/uL (0.83-4.51); Absolute Neutrophil Count 4.6 X10^3/uL (2.0-7.7); Basophil# 0.06 X10^3/uL; Basophil% 0.8 % (0-1); Eosinophil# 0.26 X10^3/uL; Eosinophils% 3.5 % (0-5); Hematocrit 39.3 % (37-47); Hemoglobin 12.5 g/dL (12.0-15.0); Lymphocyte # 2.09 X10^3/ul (0.83-4.51); Lymphocyte % 27.9 % (19-41); Mean Corp Hgb Conc 31.8 g/dL (32-36); Mean Corpuscular Hgb 30.2 pg (27.0-32.0); Mean Corpuscular Volume 94.9 fL (81-99); Mean Platelet Vol. 9.6 fl (6.2-12.0); Monocyte# 0.47 X10^3/uL; Monocyte% 6.3 % (0-10); NRBC Flagged by Analyzer 0 % (0-5); Neutrophil # 4.58 X10^3/uL (2.7-7.7); Neutrophil % 61.2 % (47-70); Platelet Count 218 K/mm3 (150-450); RBC Distribution Width CV 13.9 % (11.6-14.6); RBC Distribution Width SD 48.5 fl (35.1-43.9); Red Blood Count 4.14 M/mm3 (4.2-5.4); White Blood Count 7.5 K/mm3 (4.4-11.0)
[2024-03-23 14:58] LABS: Vitamin D,25 Hydroxy 33.4 ng/mL
[2024-03-23 15:05] LABS: ALB/GLOB Ratio 0.9 RATIO (0.9-2.4); AST(SGOT) 20 U/L (15-37); Alanine Aminotransfer ALT/SGPT 24 U/L (13-56); Albumin, Serum 3.6 g/dL (3.2-5.0); Alkaline Phosphatase 85 U/L (45-117); Anion Gap 4 (5-15); BUN 16 mg/dL (7-18); BUN/Creat Ratio 22.7 RATIO (10-20); Calcium,Total 9.1 mg/dL (8.5-10.1); Chloride 105 mmol/L (98-107); Cholesterol 222 mg/dL (200); Creatinine, Serum 0.71 mg/dL (0.55-1.02); EST Glomerular Filtration Rate 87 mL/min (>60); Est Glom Filt Rate - Afr Amer 106 mL/min (>60); Globulin 3.9 g/dL (2.2-4.2); Glucose 129 mg/dL (74-106); High Density Lipoprotein 28 mg/dL; Potassium 4.2 mmol/L (3.5-5.1); Protein, Total 7.5 g/dL (6.4-8.2); Sodium Level 140 mmol/L (136-145); Thyroid Stim Hormone (TSH) 3.24 uIU/mL (0.358-3.74); Triglycerides 318 mg/dL; Very Low Density Lipoprotein 64 mg/dL (5-40)
[2024-03-23 15:06] LABS: Hemoglobin A1c 5.5 % (3.8-5.6)
== END | disposition home or self-care (01) ==
LOC: LAB 14:04
PROVIDERS: PCP Internal Medicine; Referring Provider Internal Medicine; Visit Provider Internal Medicine
DX: I10 Essential (primary) hypertension (principal); E78.5 Hyperlipidemia, unspecified; E55.9 Vitamin D deficiency, unspecified; E66.9 Obesity, unspecified; E78.1 Pure hyperglyceridemia; R73.09 Other abnormal glucose
CPT/HCPCS: 36415; 80053; 80061; 82306; 83036; 84443; 85025

== ENCOUNTER → 2024-04-16 | Outpatient (CLI) | payer MEDICARE, SELFPAY | END | disposition home or self-care (01) | PROVIDERS: PCP Internal Medicine; Referring Provider Internal Medicine; Visit Provider Internal Medicine | DX: Z00.00 Encounter for general adult medical examination without abnormal findings (principal); I10 Essential (primary) hypertension; E55.9 Vitamin D deficiency, unspecified; E66.9 Obesity, unspecified; E78.1 Pure hyperglyceridemia | CPT/HCPCS: 36415 ==

== ENCOUNTER → 2024-09-22 | Outpatient (CLI) | payer MEDICARE, SELFPAY ==
[2024-09-22 12:54] LABS: Absolute Lymphocyte Count 2.27 X10^3/uL (0.83-4.51); Absolute Neutrophil Count 5.1 X10^3/uL (2.0-7.7); Basophil# 0.07 X10^3/uL; Basophil% 0.8 % (0-1); Eosinophils% 4.7 % (0-5); Hematocrit 39.7 % (37-47); Hemoglobin 12.6 g/dL (12.0-15.0); Lymphocyte # 2.27 X10^3/ul (0.83-4.51); Lymphocyte % 26.7 % (19-41); Mean Corp Hgb Conc 31.7 g/dL (32-36); Mean Corpuscular Hgb 29.4 pg (27.0-32.0); Mean Corpuscular Volume 92.5 fL (81-99); Monocyte# 0.59 X10^3/uL; Monocyte% 6.9 % (0-10); NRBC Flagged by Analyzer 0 % (0-5); Neutrophil # 5.14 X10^3/uL (2.7-7.7); Neutrophil % 60.5 % (47-70); Platelet Count 240 K/mm3 (150-450); RBC Distribution Width CV 13.5 % (11.6-14.6); RBC Distribution Width SD 45.5 fl (35.1-43.9); Red Blood Count 4.29 M/mm3 (4.2-5.4); White Blood Count 8.5 K/mm3 (4.4-11.0)
[2024-09-22 13:23] LABS: ALB/GLOB Ratio 0.9 RATIO (0.9-2.4); AST(SGOT) 14 U/L (15-37); Alanine Aminotransfer ALT/SGPT 27 U/L (13-56); Albumin, Serum 3.7 g/dL (3.2-5.0); Alkaline Phosphatase 97 U/L (45-117); Anion Gap 4 (5-15); BUN 19 mg/dL (7-18); BUN/Creat Ratio 30.5 RATIO (10-20); Calcium,Total 9.4 mg/dL (8.5-10.1); Chloride 105 mmol/L (98-107); Cholesterol 218 mg/dL (200); Creatinine, Serum 0.62 mg/dL (0.55-1.02); EST Glomerular Filtration Rate 101 mL/min (>60); Est Glom Filt Rate - Afr Amer 122 mL/min (>60); Globulin 3.9 g/dL (2.2-4.2); Glucose 96 mg/dL (74-106); High Density Lipoprotein 27 mg/dL; Potassium 4.4 mmol/L (3.5-5.1); Protein, Total 7.6 g/dL (6.4-8.2); Sodium Level 138 mmol/L (136-145); Triglycerides 441 mg/dL
[2024-09-22 13:42] LABS: Hemoglobin A1c 5.8 % (3.8-5.6)
== END | disposition home or self-care (01) ==
PROVIDERS: PCP Internal Medicine; Referring Provider Internal Medicine; Visit Provider Internal Medicine
DX: E78.1 Pure hyperglyceridemia (principal); E78.5 Hyperlipidemia, unspecified; I10 Essential (primary) hypertension; R73.9 Hyperglycemia, unspecified; Z13.220 Encounter for screening for lipoid disorders
CPT/HCPCS: 36415; 80053; 80061; 83036; 85025

== ENCOUNTER → 2024-10-20 | Outpatient (CLI) | payer MEDICARE, SELFPAY ==
--- NOTE | 2024-10-20 14:05 | BI_ITS ---
MAMMOGRAPHY - BILATERAL SCREENING REASON FOR EXAM: Female, 69 years old. Routine annual screening examination. PERTINENT HISTORY: Sister with breast cancer. TECHNIQUE: Digital bilateral breast kristel (3D mammographic acquisition) in the CC and MLO projections. 2-D mediolateral oblique (MLO) and craniocaudad (CC) views of both breasts were obtained. CAD: Full Field Digital Mammography with Computer Added Detection was performed. COMPARISON: Comparison is made with prior study dated April 08, 2023 and March 23, 2022. FINDINGS: Breast Composition: There are scattered areas of fibroglandular density. There are no dominant masses or suspicious calcifications. Stable microcalcification in the upper deep lateral aspect of the right breast. Stable appearance of the bilateral axillary lymph nodes. No other significant abnormalities are identified. There has been no significant change since the prior study. BI/SCRN MAMM (CAD)W/KRISTEL BILAT IMPRESSION: Stable bilateral screening mammogram. Yearly follow-up mammogram recommended. (A) ASSESSMENT CATEGORY: BIRADS Category 2: Benign. A letter regarding these results will be sent to the patient by the facility within 30 days. Approximately 10% of breast cancers are not detected by mammography. A normal mammogram should not delay biopsy of a clinically suspicious abnormality. [id number] Electronically Signed: Ramón Hua MD at 14:39 EST ,
== END | disposition home or self-care (01) ==
LOC: OPBI 14:03
PROVIDERS: PCP Internal Medicine; Referring Provider Internal Medicine; Visit Provider Internal Medicine
DX: Z12.31 Encounter for screening mammogram for malignant neoplasm of breast (principal)
CPT/HCPCS: 77063; 77067

== ENCOUNTER → 2025-01-19 | Outpatient (CLI) | payer MEDICARE, SELFPAY ==
[2025-01-19 14:10] LABS: ALB/GLOB Ratio 1.3 RATIO (0.9-2.4); AST(SGOT) 24 U/L (<=31); Alanine Aminotransfer ALT/SGPT 14 U/L (<=34); Albumin, Serum 4.3 g/dL (3.4-4.8); Alkaline Phosphatase 98 U/L (35-104); Anion Gap 10 (5-15); BUN 15 mg/dL (4-19); BUN/Creat Ratio 20.2 RATIO (10-20); Calcium,Total 9.4 mg/dL (7.6-11.0); Carbon Dioxide 27.6 mmol/L (21.0-32.0); Chloride 102 mmol/L (98-108); Cholesterol 226 mg/dL (<=200); Creatinine, Serum 0.75 mg/dL (0.70-1.20); EST Glomerular Filtration Rate 86 (>60); Globulin 3.3 g/dL (2.2-4.2); Glucose 78 mg/dL (70-99); Hemoglobin A1c 5.8 % (<=5.6); High Density Lipoprotein 35 mg/dL; Low Density Lipoprotein Calc. 105 mg/dL; Potassium 4.3 mmol/L (3.3-5.1); Protein, Total 7.6 g/dL (5.9-8.4); Sodium Level 140 mmol/L (133-145); Total Bilirubin 0.25 mg/dL (0.00-1.30); Triglycerides 433 mg/dL; Very Low Density Lipoprotein 87 mg/dL (5-40); cholesterol:hdl ratio screen 6.49
== END | disposition home or self-care (01) ==
LOC: LAB 13:09
PROVIDERS: PCP Internal Medicine; Referring Provider Internal Medicine; Visit Provider Internal Medicine
DX: R73.9 Hyperglycemia, unspecified (principal); E78.5 Hyperlipidemia, unspecified; E78.6 Lipoprotein deficiency; I10 Essential (primary) hypertension; Z13.220 Encounter for screening for lipoid disorders
CPT/HCPCS: 36415; 80053; 80061; 83036

== ENCOUNTER → 2025-01-25 | Outpatient (CLI) | payer MEDICARE, SELFPAY ==
[2025-01-26 08:08] LABS: Insulin Level 34.8 uIU/mL (2.6-24.9)
== END | disposition home or self-care (01) ==
LOC: LAB 08:39
PROVIDERS: PCP Internal Medicine; Referring Provider Internal Medicine; Visit Provider Internal Medicine
DX: R73.09 Other abnormal glucose (principal); E78.5 Hyperlipidemia, unspecified; I10 Essential (primary) hypertension
CPT/HCPCS: 83525

== ENCOUNTER → 2025-07-26 | Outpatient (CLI) | payer MEDICARE, SELFPAY ==
[2025-07-26 12:07] LABS: AST(SGOT) 28 U/L (<=31); Alanine Aminotransfer ALT/SGPT 21 U/L (<=34); Albumin, Serum 4.4 g/dL (3.4-4.8); Alkaline Phosphatase 103 U/L (35-104); Anion Gap 12 (5-15); BUN 15 mg/dL (4-19); BUN/Creat Ratio 23.0 RATIO (10-20); Calcium,Total 9.4 mg/dL (7.6-11.0); Carbon Dioxide 25.2 mmol/L (21.0-32.0); Chloride 104 mmol/L (98-108); Cholesterol 219 mg/dL (<=200); Globulin 3.1 g/dL (2.2-4.2); Glucose 89 mg/dL (70-99); Low Density Lipoprotein Calc. 143 mg/dL; Potassium 4.6 mmol/L (3.3-5.1); Triglycerides 200 mg/dL; Very Low Density Lipoprotein 40 mg/dL (5-40); Vitamin D,25 Hydroxy 30.7 ng/mL (30-100); cholesterol:hdl ratio screen 6.03
[2025-07-27 10:41] LABS: Free T3 2.4 pg/mL (2.18-3.98)
== END | disposition home or self-care (01) ==
LOC: LAB 10:27
PROVIDERS: PCP Internal Medicine; Referring Provider Internal Medicine; Visit Provider Internal Medicine
DX: E78.5 Hyperlipidemia, unspecified (principal); I10 Essential (primary) hypertension; E87.6 Hypokalemia; E55.9 Vitamin D deficiency, unspecified; E78.1 Pure hyperglyceridemia; R73.9 Hyperglycemia, unspecified; E03.9 Hypothyroidism, unspecified
CPT/HCPCS: 36415; 80053; 80061; 82306; 83036; 83525; 84439; 84443; 84481; 86376; 86800